=== PATIENT | male | born 1940 | race American Indian/Alaskan Native ===

== ENCOUNTER 2018-10-25 10:50 | Inpatient (IN) | payer MEDICARE ==
--- NOTE | 2018-10-25 11:26 | Emergency Department Report ---
ED Extremity Problem HPI - General Chief complaint: Extremity Injury, Lower Stated complaint: SWOLLEN FEET Time Seen by Provider: 10/25/18 11:10 Source: patient, family Mode of arrival: Ambulatory Limitations: Physical Limitation - History of Present Illness Initial comments: 78-year-old male, poor historian, presents to ED with bilateral lower extremity swelling 3 weeks. Patient has history of prostate cancer, thought to be in remission at this time following his last treatment. Patient was seen in this ER 6 days ago for same. Was given a prescription for Lasix, which he has been taking, however the swelling seems to be getting worse. Patient states he has a history of "heart problems", however the patient's says she is not aware of any heart problems. Denies pt ever having swelling in his legs to this extent. Patient denies shortness of breath. Reports pain and weeping to bilateral lower legs and feet. Patient is from out of town, and is here with his visiting his daughter who is currently sick with cancer. MD Complaint: extremity pain, extremity swelling -: week(s) (3) Location: bilateral lower extremity History of Same: No Consistency: constant Improves with: nothing Worsens with: nothing Associated Symptoms: denies: chest pain, shortness of breath - Related Data Previous Rx's Medication Instructions Recorded Last Taken Type Amlodipine Besylate [Norvasc] 5 mg PO DAILY #7 tablet 10/19/18 Unknown Rx Furosemide [Lasix] 20 mg PO QDAY #20 tablet 10/19/18 Unknown Rx Furosemide [Lasix] 20 mg PO QDAY #7 tablet 10/19/18 Unknown Rx Allergies Allergy/AdvReac Type Severity Reaction Status Date / Time No Known Allergies Allergy Verified 10/19/18 09:36 ED Review of Systems ROS: Stated complaint: SWOLLEN FEET Other details as noted in HPI Comment: All other systems reviewed and negative Constitutional: denies: chills, fever Respiratory: denies: shortness of breath Cardiovascular: denies: chest pain Musculoskeletal: as per HPI ED Past Medical Hx - Past Medical History Previous Medical History?: Yes Hx Hypertension: Yes Hx Diabetes: Yes Hx Renal Disease: Yes (unknown stage) - Surgical History Past Surgical History?: No - Social History Smoking Status: Never Smoker Substance Use Type: Alcohol - Medications Home Medications: Home Medications Medication Instructions Recorded Confirmed Last Taken Type Amlodipine Besylate [Norvasc] 5 mg PO DAILY #7 tablet 10/19/18 Unknown Rx Furosemide [Lasix] 20 mg PO QDAY #20 tablet 10/19/18 Unknown Rx Furosemide [Lasix] 20 mg PO QDAY #7 tablet 10/19/18 Unknown Rx ED Physical Exam - General Limitations: Physical Limitation General appearance: alert, in no apparent distress - Head Head exam: Present: atraumatic, normocephalic - Eye Eye exam: Present: normal appearance - ENT ENT exam: Present: mucous membranes moist - Neck Neck exam: Present: normal inspection - Respiratory Respiratory exam: Present: normal lung sounds bilaterally. Absent: respiratory distress - Cardiovascular Cardiovascular Exam: Present: regular rate, normal rhythm - GI/Abdominal GI/Abdominal exam: Present: soft. Absent: distended - Extremities Exam Extremities exam: Present: other (2+ pitting edema to bilateral feet and lower legs with excoriation of skin if dorsal feet, weeping fluid present bilaterally) - Neurological Exam Neurological exam: Present: alert, oriented X3 - Psychiatric Psychiatric exam: Present: normal affect, normal mood - Skin Skin exam: Present: warm ED Course Vital Signs 10/25/18 10:57 Temperature 97.7 F Pulse Rate 92 H Respiratory 16 Rate Blood Pressure 139/67 O2 Sat by Pulse 100 Oximetry ED Medical Decision Making - Lab Data Result diagrams: 10/25/18 12:37 10/25/18 13:49 - Radiology Data Radiology results: report reviewed, image reviewed - Medical Decision Making 78 yo M, hx prostate CA, with BLE edema x 3 wks. US negative for DVT. Edema worsening since ED visit 5 days ago despite taking lasix. CXR negative. Initial potassium elevated at 5.7. Re-draw is 5.2. Likely hemolysis as renal function is normal. IV lasix given. Will admit to hospitalist, Dr Alexis. - Differential Diagnosis CHF, DVT, dependent edema Critical care attestation.: If time is entered above; I have spent that time in minutes in the direct care of this critically ill patient, excluding procedure time. ED Disposition Clinical Impression: Bilateral lower extremity edema Disposition: OP ADMIT IP TO THIS HOSP Is pt being admited?: Yes Condition: Stable Referrals: PRIMARY CARE, [Referring] - 3-5 Days Time of Disposition: 13:43
--- NOTE | 2018-10-25 12:34 | XRay Report ---
PROCEDURE: XR CHEST 1V AP TECHNIQUE: Chest radiograph single view. HISTORY: sob COMPARISONS: None . FINDINGS: Thoracic aorta changes may reflect atherosclerosis. There is degenerative spondylosis of the thoracic spine. There is no pulmonary consolidation. No evidence of pleural effusion. No pneumothorax radiographically visible. Cardiac silhouette size is normal without vascular congestion. Large lung volumes suggest hyperinflation. This may reflect pulmonary emphysema. IMPRESSION: Nonspecific large lung volumes may be secondary to pulmonary emphysema and/or asthma This document is electronically signed by Freddie Bettencourt MD., Oct 25 2018 12:32:00 PM ET
[2018-10-25 13:07] LABS: Basophils % (Auto) 0.7 % (0.0-1.8); Eosinophils # (Auto) 0.1 K/mm3 (0.0-0.4); Eosinophils % (Auto) 2.9 % (0.0-4.3); Hematocrit 30.6 % (35.5-45.6); Hemoglobin 9.9 gm/dl (11.8-15.2); Lymphocytes # (Auto) 0.8 K/mm3 (1.2-5.4); Lymphocytes % (Auto) 18.7 % (13.4-35.0); Mean Corpuscular HGB Conc 32 % (32-34); Mean Corpuscular Volume 106 fl (84-94); Monocytes # (Auto) 0.3 K/mm3 (0.0-0.8); Monocytes % (Auto) 6.2 % (0.0-7.3); Platelet Count 116 K/mm3 (140-440); Red Blood Count 2.89 M/mm3 (3.65-5.03); Red Cell Distribution Width 13.6 % (13.2-15.2)
[2018-10-25 13:27] LABS: Calcium 8.4 mg/dL (8.4-10.2)
--- NOTE | 2018-10-25 13:27 | Vascular Lab Report ---
PROCEDURE: VL VENOUS DUPLEX LE BILAT HISTORY: swelling FINDINGS: Real-time ultrasound of the right leg and left leg was performed using grayscale and color Doppler images. These images demonstrate no evidence of deep venous thrombus in the lateral left common femoral vein, superficial femoral vein or popliteal vein. The calf veins could not be images due to subcutaneous edema. There is a left popliteal cyst 2.5 x 1.1 cm. There is a right groin lymph node 1.6 x 0.8 cm and a left groin lymph node 1.8 x 0.6 cm. IMPRESSION: No DVT in either leg Left popliteal cyst This document is electronically signed by Edison Sol MD., Oct 25 2018 01:25:02 PM ET
[2018-10-25] MEDS ORDERED: LASIX IV ONE (14:17)
[2018-10-25] MEDS ORDERED: LASIX ONE (14:51)
--- NOTE | 2018-10-25 20:56 | History and Physical Report ---
History of Present Illness Date of examination: 10/25/18 Date of admission: 10/25/18 14:17 Chief complaint: Bilateral lower extremity swelling and redness for 3 weeks. SOB on exertion for 3 weeks History of present illness: 78-year-old male with history of HTN,Prostate cancer in remission comes in for Increasing swelling of both legs especially feet for 3 weeks.Also redness of both feet.Patient came to this ER 6 days ago and was treated for lower extremity swelling with Lasix and to follow up with pcp.Patient comes back for increasing swelling of the legs and worsening redness of both feet.No sob on exertion.No orthopnea. No fever or chills. No recent travel. Past Medical History Previous Medical History?: Yes Hypertension: Yes Diabetes: Yes Renal Disease: Yes (unknown stage) Surgical History Past Surgical History?: No Social History Smoking Status: Never Smoker Substance Use Type: Alcohol Family History Htn Medications Home Medications: Home Medications Medication Instructions Recorded Confirmed Last Taken Type Amlodipine Besylate [Norvasc] 5 mg PO DAILY #7 tablet 10/19/18 Unknown Rx Furosemide [Lasix] 20 mg PO QDAY #20 tablet 10/19/18 Unknown Rx Furosemide [Lasix] 20 mg PO QDAY #7 tablet 10/19/18 Unknown Rx Review of Systems ROS: Stated complaint: SWOLLEN FEET Other details as noted in HPI Comment: All other systems reviewed and negative Constitutional: denies: chills, fever Respiratory: denies: shortness of breath Cardiovascular: denies: chest pain Musculoskeletal: as per HPI Extremities: Increasing swelling of both legs. Medications and Allergies Allergies Allergy/AdvReac Type Severity Reaction Status Date / Time No Known Allergies Allergy Verified 10/19/18 09:36 Home Medications Medication Instructions Recorded Confirmed Last Taken Type Amlodipine Besylate [Norvasc] 5 mg PO DAILY #7 tablet 10/19/18 10/25/18 Unknown Rx Furosemide [Lasix] 20 mg PO QDAY #20 tablet 10/19/18 10/25/18 Unknown Rx Furosemide [Lasix] 20 mg PO QDAY #7 tablet 10/19/18 10/25/18 Unknown Rx Exam - Constitutional Vitals: Temp Pulse Resp BP Pulse Ox 98.7 F 76 20 138/70 96 10/25/18 15:37 10/25/18 15:37 10/25/18 15:37 10/25/18 15:37 10/25/18 15:49 General appearance: Present: no acute distress, well-nourished - EENT Eyes: Present: PERRL ENT: hearing intact, clear oral mucosa - Neck Neck: Present: supple, normal ROM - Respiratory Respiratory effort: normal Respiratory: bilateral: CTA - Cardiovascular Heart rate: 78 Rhythm: regular Heart Sounds: Present: S1 & S2. Absent: rub, click - Extremities Extremities: pulses symmetrical Extremity abnormal: edema (4 plus swelling of both feet Eryhema of both feet.small superficial ulcer on rt foot ), erythema Peripheral Pulses: within normal limits - Abdominal General gastrointestinal: Present: soft, non-tender, non-distended, normal bowel sounds Male genitourinary: Present: normal - Rectal Rectal Exam: deferred - Integumentary Integumentary: Present: clear, warm, dry - Musculoskeletal Musculoskeletal: gait normal, strength equal bilaterally - Psychiatric Psychiatric: appropriate mood/affect, intact judgment & insight - Neurologic Neurologic: CNII-XII intact, moves all extremities - Allied Health Allied health notes reviewed: nursing, case management Results - Labs CBC & Chem 7: 10/25/18 12:37 10/25/18 13:49 Labs: Laboratory Last Values WBC 4.2 K/mm3 (4.5-11.0) L 10/25/18 12:37 RBC 2.89 M/mm3 (3.65-5.03) L 10/25/18 12:37 Hgb 9.9 gm/dl (11.8-15.2) L 10/25/18 12:37 Hct 30.6 % (35.5-45.6) L 10/25/18 12:37 MCV 106 fl (84-94) H 10/25/18 12:37 MCH 34 pg (28-32) H 10/25/18 12:37 MCHC 32 % (32-34) 10/25/18 12:37 RDW 13.6 % (13.2-15.2) 10/25/18 12:37 Plt Count 116 K/mm3 (140-440) L 10/25/18 12:37 Lymph % (Auto) 18.7 % (13.4-35.0) 10/25/18 12:37 [place] % (Auto) 6.2 % (0.0-7.3) 10/25/18 12:37 Eos % (Auto) 2.9 % (0.0-4.3) 10/25/18 12:37 Baso % (Auto) 0.7 % (0.0-1.8) 10/25/18 12:37 Lymph # 0.8 K/mm3 (1.2-5.4) L 10/25/18 12:37 [place] # 0.3 K/mm3 (0.0-0.8) 10/25/18 12:37 Eos # 0.1 K/mm3 (0.0-0.4) 10/25/18 12:37 Baso # 0.0 K/mm3 (0.0-0.1) 10/25/18 12:37 Seg Neutrophils % 71.5 % (40.0-70.0) H 10/25/18 12:37 Seg Neutrophils # 3.0 K/mm3 (1.8-7.7) 10/25/18 12:37 Sodium 141 mmol/L (137-145) 10/25/18 12:37 Potassium 5.2 mmol/L (3.6-5.0) H 10/25/18 13:49 Chloride 109.4 mmol/L (98-107) H 10/25/18 12:37 Carbon Dioxide 22 mmol/L (22-30) 10/25/18 12:37 15 mmol/L 10/25/18 12:37 BUN 12 mg/dL (9-20) 10/25/18 12:37 1.4 mg/dL (0.8-1.5) 10/25/18 12:37 Estimated GFR 60 ml/min 10/25/18 12:37 9 % 10/25/18 12:37 Glucose 107 mg/dL (75-100) H 10/25/18 12:37 Calcium 8.4 mg/dL (8.4-10.2) 10/25/18 12:37 NT-Pro-B Natriuret Pep 1061 pg/mL (0-900) H 10/25/18 12:37 Short CBC 10/25/18 Range/Units 12:37 WBC 4.2 L (4.5-11.0) K/mm3 Hgb 9.9 L (11.8-15.2) gm/dl Hct 30.6 L (35.5-45.6) % Plt Count 116 L (140-440) K/mm3 BMP 10/25/18 10/25/18 12:37 13:49 Sodium 141 Potassium 5.7 H 5.2 H Chloride 109.4 H Carbon Dioxide 22 BUN 12 Creatinine 1.4 Glucose 107 H Calcium 8.4 - Imaging and Cardiology EKG: report reviewed Imaging and Cardiology: Venous duplex scan of Lower extremities FINDINGS: Real-time ultrasound of the right leg and left leg was performed using grayscale and color Doppler images. These images demonstrate no evidence of deep venous thrombus in the lateral left common femoral vein, superficial femoral vein or popliteal vein. The calf veins could not be images due to subcutaneous edema. There is a left popliteal cyst 2.5 x 1.1 cm. There is a right groin lymph node 1.6 x 0.8 cm and a left groin lymph node 1.8 x 0.6 cm. IMPRESSION: No DVT in either leg Left popliteal cyst CXR IMPRESSION: Nonspecific large lung volumes may be secondary to pulmonary emphysema and/or asthma Assessment and Plan Advance Directives: Yes (Full code) VTE prophylaxis?: Chemical Plan of care discussed with patient/family: Yes - Patient Problems (1) Bilateral lower extremity edema Current Visit: Yes Status: Acute Plan to address problem: Bilateral swelling probably sec to pulmonary HTN /Emphysema .Patient is a smoker. Duplex scan is negative for any DVT There is some erythema of both feet. IV Lasix for now IV abx for cellulitis (2) Cellulitis of both feet Current Visit: Yes Status: Acute Plan to address problem: Patientr initiated on IV Unasyn and IV Vancomycin (3) Prostate cancer Current Visit: Yes Status: Chronic Plan to address problem: In remission (4) HTN (hypertension) Current Visit: Yes Status: Chronic Qualifiers: Hypertension type: essential hypertension Qualified Code(s): I10 - Essential (primary) hypertension Plan to address problem: Amlodipine stopped because of pedal edema Started on Losartan 50 mg po qd (5) Nicotine dependence Current Visit: Yes Status: Chronic Qualifiers: Nicotine product type: cigarettes Plan to address problem: Counselled Nicoderm patch initiated (6) T2DM (type 2 diabetes mellitus) Current Visit: Yes Status: Chronic Qualifiers: Diabetes mellitus technician terminal and repeater insulin use: without long-term use Plan to address problem: A1c 7.5 Coverage for now (7) Hyperkalemia Current Visit: Yes Status: Acute Plan to address problem: Mild On Lasix will resume PO Potassium (8) DVT prophylaxis Current Visit: Yes Status: Acute Plan to address problem: On Lovenox and GI prophylaxis
[2018-10-25] MEDS ORDERED: SODIUM CHLORIDE FLUSH SYRINGE 10 ML IV PRN (21:02)
[2018-10-25] MEDS ORDERED: TYLENOL PO PRN (21:02)
[2018-10-25] MEDS ORDERED: PERCOCET 5/325 PO PRN (21:02)
[2018-10-25] MEDS ORDERED: MORPHINE IV PRN (21:02)
[2018-10-25] MEDS ORDERED: ZOFRAN IV PRN (21:02)
[2018-10-25] MEDS ORDERED: VANCOMYCIN 1,250 MG in NACL 0.9% 250ML 250 ML IV ONE (22:00)
[2018-10-25] MEDS ORDERED: K-DUR PO SCH (22:00)
[2018-10-25] MEDS ORDERED: VANCOMYCIN PHARMACY TO DOSE IV SCH ×2 (22:00)
[2018-10-25] MEDS: SODIUM CHLORIDE FLUSH SYRINGE 10 ML IV SCH (22:47)
[2018-10-25] MEDS: PEPCID PO SCH (22:47)
[2018-10-26] MEDS: UNASYN/NS 3 GM/100 ML 3 GM/100 ML BAG IV SCH ×4 (00:34→17:54)
[2018-10-26] MEDS: LASIX IV SCH ×2 (05:44→17:54)
[2018-10-26 06:24] LABS: Basophils % (Auto) 0.6 % (0.0-1.8); Eosinophils # (Auto) 0.2 K/mm3 (0.0-0.4); Eosinophils % (Auto) 5.1 % (0.0-4.3); Hematocrit 26.3 % (35.5-45.6); Hemoglobin 8.9 gm/dl (11.8-15.2); Lymphocytes % (Auto) 25.6 % (13.4-35.0); Mean Corpuscular HGB Conc 34 % (32-34); Mean Corpuscular Volume 102 fl (84-94); Monocytes # (Auto) 0.3 K/mm3 (0.0-0.8); Monocytes % (Auto) 7.7 % (0.0-7.3); Platelet Count 119 K/mm3 (140-440); Red Blood Count 2.59 M/mm3 (3.65-5.03); Red Cell Distribution Width 13.3 % (13.2-15.2)
[2018-10-26 06:53] LABS: Albumin 2.7 g/dL (3.9-5); Calcium 8.1 mg/dL (8.4-10.2)
[2018-10-26] MEDS: HumaLOG SUB-Q SCH ×4 (07:30→22:07)
[2018-10-26] MEDS: KIONEX PO SCH ×2 (09:39→11:50)
[2018-10-26] MEDS: SODIUM CHLORIDE FLUSH SYRINGE 10 ML IV SCH ×2 (09:39→22:08)
[2018-10-26] MEDS: PEPCID PO SCH (09:39)
[2018-10-26] MEDS ORDERED: COZAAR PO SCH (10:00)
--- NOTE | 2018-10-26 11:21 | Progress Note ---
Assessment and Plan Assessment and plan: Cellulitis, ulcers both legs and feet Admitted to [facility] Continue Unasyn and vanco Consult wouncd care nurse Minimal blood in stool from known hemorrhoids. Follow H/H Hyperkalemia. give kayexalate and repeat. Discontinue k-dur Hypertension Monitor BP History of prostate cancer full code status History Interval history: Pain swelling redness both legs and feet, Blood in stool from hemorrhoids Hospitalist Physical - Physical exam Narrative exam: Gen: Not in acute distress, lying in bed, HEENT: Normocephalic, atraumatic Neck: supple, no JVD Heart: S1 and S2 reg, no murmurs, rubs or gallop Lungs: Clear, no crackles, no wheeze Abd: soft, non tender, non distended, normal BS Ext: Bilateral leg and feet ulcers, swelling, erythema,no clubbing, no cyanosis, Neuro: Awake,alert, oriented x 3, moves all ext, non focal Psych:Normal mood - Constitutional Vitals: Temp Pulse Resp BP Pulse Ox 98.2 F 90 16 133/68 97 10/26/18 07:19 10/26/18 10:00 10/26/18 07:19 10/26/18 07:19 10/26/18 07:19 General appearance: Present: no acute distress, well-nourished Results - Labs CBC & Chem 7: 10/26/18 05:42 10/26/18 05:42 Labs: Laboratory Last Values WBC 4.0 K/mm3 (4.5-11.0) L 10/26/18 05:42 RBC 2.59 M/mm3 (3.65-5.03) L 10/26/18 05:42 Hgb 8.9 gm/dl (11.8-15.2) L 10/26/18 05:42 Hct 26.3 % (35.5-45.6) L 10/26/18 05:42 MCV 102 fl (84-94) H 10/26/18 05:42 MCH 34 pg (28-32) H 10/26/18 05:42 MCHC 34 % (32-34) 10/26/18 05:42 RDW 13.3 % (13.2-15.2) 10/26/18 05:42 Plt Count 119 K/mm3 (140-440) L 10/26/18 05:42 Lymph % (Auto) 25.6 % (13.4-35.0) 10/26/18 05:42 [place] % (Auto) 7.7 % (0.0-7.3) H 10/26/18 05:42 Eos % (Auto) 5.1 % (0.0-4.3) H 10/26/18 05:42 Baso % (Auto) 0.6 % (0.0-1.8) 10/26/18 05:42 Lymph # 1.0 K/mm3 (1.2-5.4) L 10/26/18 05:42 [place] # 0.3 K/mm3 (0.0-0.8) 10/26/18 05:42 Eos # 0.2 K/mm3 (0.0-0.4) 10/26/18 05:42 Baso # 0.0 K/mm3 (0.0-0.1) 10/26/18 05:42 Seg Neutrophils % 61.0 % (40.0-70.0) 10/26/18 05:42 Seg Neutrophils # 2.5 K/mm3 (1.8-7.7) 10/26/18 05:42 Sodium 143 mmol/L (137-145) 10/26/18 05:42 Potassium 5.4 mmol/L (3.6-5.0) H 10/26/18 05:42 Chloride 111.5 mmol/L (98-107) H 10/26/18 05:42 Carbon Dioxide 22 mmol/L (22-30) 10/26/18 05:42 15 mmol/L 10/26/18 05:42 BUN 12 mg/dL (9-20) 10/26/18 05:42 1.4 mg/dL (0.8-1.5) 10/26/18 05:42 Estimated GFR 60 ml/min 10/26/18 05:42 9 % 10/26/18 05:42 Glucose 110 mg/dL (75-100) H 10/26/18 05:42 POC Glucose 101 (70-105) 10/26/18 07:23 7.5 % (4-6) H 10/25/18 21:23 Calcium 8.1 mg/dL (8.4-10.2) L 10/26/18 05:42 0.30 mg/dL (0.1-1.2) 10/26/18 05:42 AST 41 units/L (5-40) H 10/26/18 05:42 ALT 29 units/L (7-56) 10/26/18 05:42 65 units/L (35-129) 10/26/18 05:42 NT-Pro-B Natriuret Pep 1061 pg/mL (0-900) H 10/25/18 12:37 4.7 g/dL (6.3-8.2) L 10/26/18 05:42 2.7 g/dL (3.9-5) L 10/26/18 05:42 1.4 % 10/26/18 05:42 Active Medications - Current Medications Current Medications: Generic Name Dose Route Start Last Admin Trade Name Freq PRN Reason Stop Dose Admin Acetaminophen 650 mg 10/25/18 21:02 Tylenol PO Q4H PRN Pain MILD(1-3)/Fever >100.5/MCDONALD Enoxaparin Sodium 40 mg 10/26/18 22:00 Lovenox SUB-Q QDAY@2200 [facility] Famotidine 20 mg 10/25/18 22:00 10/26/18 09:39 Pepcid PO 20 mg DAILY EMILY Administration Furosemide 40 mg 10/26/18 06:00 10/26/18 05:44 Lasix IV 40 mg 0600,1800 EMILY Administration Ampicillin Sodium/Sulbactam Sodium 3 gm in 100 mls @ 100 mls/hr 10/26/18 00:00 10/26/18 05:44 Unasyn/Ns 3 Gm/100 Ml IV 100 mls/hr Q6HR EMILY Administration Protocol Vancomycin HCl 1 gm in 250 mls @ 166.667 mls/hr 10/26/18 22:00 Vancomycin/Ns 1 Gm/250 Ml IV Q24H [facility] Insulin Human Lispro 0 unit 10/26/18 07:30 10/26/18 07:30 Humalog SUB-Q Not Given ACHS [facility] Protocol Morphine Sulfate 2 mg 10/25/18 21:02 Morphine IV Q4H PRN Pain, Moderate (4-6) Ondansetron HCl 4 mg 10/25/18 21:02 Zofran IV Q8H PRN Nausea And Vomiting Oxycodone/Acetaminophen 1 tab 05/25/19 21:02 Percocet 5/325 PO Q6H PRN Pain, Moderate (4-6) Sodium Chloride 10 ml 10/25/18 22:00 10/26/18 09:39 Sodium Chloride Flush Syringe 10 Ml IV 10 ml BID EMILY Administration Sodium Chloride 10 ml 10/25/18 21:02 Sodium Chloride Flush Syringe 10 Ml IV PRN PRN LINE FLUSH Sodium Polystyrene Sulfonate 30 gm 10/26/18 09:00 10/26/18 09:39 Kionex PO 10/26/18 12:01 30 gm Q6HR EMILY Administration Nutrition/Malnutrition Assess - Dietary Evaluation Nutrition/Malnutrition Findings: Nutrition Notes Start: 10/26/18 10:05 Freq: Status: Active Protocol: Document 10/26/18 10:05 LP (Rec: 10/26/18 10:10 LP [id number]) Nutrition Notes Need for 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 Pt states missing top teeth and some bottom but ok with regular consistency. Pt states appetite varies. Observed temporal wasting. Pt states wt last month was 111lbs. Wt gain could be due to edema. #1 Nutrition Diagnosis Malnutrition Etiology chronic illness As Evidenced by Signs and Symptoms leg edema, varied appetite, temporal wasting Is patient on ventilator? No Is Patient Ambulatory and/or Out of Bed Yes REE-([facility]-ambulatory/OOB) [ [id number] [id number]] Calculation Used for Recommendations [facility] Additional Notes Protein needs are 71-88g (1.2- 1.5g/kg) Fluid needs are 1ml/kcal Nutrition Intervention Change Diet Order: Cardiac/consistent CHO Goal #1 Meet at least 80% of kcal and protein needs Anticipated Discharge Needs: Cardiac/consistent CHO Follow-Up By: 10/28/18 Additional Comments Follow for intakes
[2018-10-26 18:06] LABS: Calcium 8.2 mg/dL (8.4-10.2)
[2018-10-26] MEDS: LOVENOX SUB-Q SCH (22:07)
[2018-10-26] MEDS: VANCOMYCIN/NS 1 GM/250 ML 1 GM/250 ML BAG IV SCH (22:08)
[2018-10-27] MEDS: UNASYN/NS 3 GM/100 ML 3 GM/100 ML BAG IV SCH ×5 (00:28→23:07)
[2018-10-27] MEDS: LASIX IV SCH ×2 (05:05→17:24)
[2018-10-27 05:44] LABS: Hematocrit 31.1 % (35.5-45.6); Hemoglobin 10.3 gm/dl (11.8-15.2); Mean Corpuscular HGB Conc 33 % (32-34); Mean Corpuscular Volume 104 fl (84-94); Platelet Count 136 K/mm3 (140-440); Red Blood Count 2.99 M/mm3 (3.65-5.03); Red Cell Distribution Width 13.6 % (13.2-15.2)
[2018-10-27 06:00] LABS: Calcium 8.8 mg/dL (8.4-10.2)
[2018-10-27] MEDS: HumaLOG SUB-Q SCH ×4 (09:00→22:49)
[2018-10-27] MEDS: SODIUM CHLORIDE FLUSH SYRINGE 10 ML IV SCH ×2 (09:42→21:25)
[2018-10-27] MEDS: PEPCID PO SCH (09:42)
--- NOTE | 2018-10-27 16:00 | Progress Note ---
Assessment and Plan Assessment and plan: Cellulitis, ulcers both legs and feet Admitted to [facility] Continue Unasyn and vicenta Consulted wound care nurse Minimal blood in stool from known hemorrhoids, chronic Follow H/H Hyperkalemia. Now resolved after Kayexalate Discontinued k-dur he was using from home. Hypertension Monitor BP History of prostate cancer full code status History Interval history: Pain , swelling redness both legs and feet, Slight Blood in stool from hemorrhoids, intermittent Hospitalist Physical - Physical exam Narrative exam: Gen: Not in acute distress, lying in bed, HEENT: Normocephalic, atraumatic Neck: supple, no JVD Heart: S1 and S2 reg, no murmurs, rubs or gallop Lungs: Clear, no crackles, no wheeze Abd: soft, non tender, non distended, normal BS Ext: Bilateral leg and feet ulcers, swelling, erythema,no clubbing, no cyanosis, Neuro: Awake,alert, oriented x 3, moves all ext, non focal Psych:Normal mood - Constitutional Vitals: Temp Pulse Resp BP Pulse Ox 97.6 F 90 18 139/72 100 10/27/18 13:23 10/27/18 13:23 10/27/18 13:23 10/27/18 13:23 10/27/18 13:23 General appearance: Present: no acute distress, well-nourished Results - Labs CBC & Chem 7: 10/27/18 04:57 10/27/18 04:57 Labs: Laboratory Last Values WBC 4.2 K/mm3 (4.5-11.0) L 10/27/18 04:57 RBC 2.99 M/mm3 (3.65-5.03) L 10/27/18 04:57 Hgb 10.3 gm/dl (11.8-15.2) L 10/27/18 04:57 Hct 31.1 % (35.5-45.6) L 10/27/18 04:57 MCV 104 fl (84-94) H 10/27/18 04:57 MCH 35 pg (28-32) H 10/27/18 04:57 MCHC 33 % (32-34) 10/27/18 04:57 RDW 13.6 % (13.2-15.2) 10/27/18 04:57 Plt Count 136 K/mm3 (140-440) L 10/27/18 04:57 Lymph % (Auto) 25.6 % (13.4-35.0) 10/26/18 05:42 [place] % (Auto) 7.7 % (0.0-7.3) H 10/26/18 05:42 Eos % (Auto) 5.1 % (0.0-4.3) H 10/26/18 05:42 Baso % (Auto) 0.6 % (0.0-1.8) 10/26/18 05:42 Lymph # 1.0 K/mm3 (1.2-5.4) L 10/26/18 05:42 [place] # 0.3 K/mm3 (0.0-0.8) 10/26/18 05:42 Eos # 0.2 K/mm3 (0.0-0.4) 10/26/18 05:42 Baso # 0.0 K/mm3 (0.0-0.1) 10/26/18 05:42 Seg Neutrophils % 61.0 % (40.0-70.0) 10/26/18 05:42 Seg Neutrophils # 2.5 K/mm3 (1.8-7.7) 10/26/18 05:42 Sodium 148 mmol/L (137-145) H 10/27/18 04:57 Potassium 4.6 mmol/L (3.6-5.0) 10/27/18 04:57 Chloride 112.0 mmol/L (98-107) H 10/27/18 04:57 Carbon Dioxide 22 mmol/L (22-30) 10/27/18 04:57 19 mmol/L 10/27/18 04:57 BUN 12 mg/dL (9-20) 10/27/18 04:57 1.5 mg/dL (0.8-1.5) 10/27/18 04:57 Estimated GFR 55 ml/min 10/27/18 04:57 8 % 10/27/18 04:57 Glucose 70 mg/dL (75-100) L 10/27/18 04:57 POC Glucose 226 (70-105) H 10/27/18 11:52 7.5 % (4-6) H 10/25/18 21:23 Calcium 8.8 mg/dL (8.4-10.2) 10/27/18 04:57 0.30 mg/dL (0.1-1.2) 10/26/18 05:42 AST 41 units/L (5-40) H 10/26/18 05:42 ALT 29 units/L (7-56) 10/26/18 05:42 65 units/L (35-129) 10/26/18 05:42 NT-Pro-B Natriuret Pep 1061 pg/mL (0-900) H 10/25/18 12:37 4.7 g/dL (6.3-8.2) L 10/26/18 05:42 2.7 g/dL (3.9-5) L 10/26/18 05:42 1.4 % 10/26/18 05:42 Active Medications - Current Medications Current Medications: Generic Name Dose Route Start Last Admin Trade Name Freq PRN Reason Stop Dose Admin Acetaminophen 650 mg 10/25/18 21:02 Tylenol PO Q4H PRN Pain MILD(1-3)/Fever >100.5/MCDONALD Enoxaparin Sodium 40 mg 10/26/18 22:00 10/26/18 22:07 Lovenox SUB-Q 40 mg QDAY@2200 EMILY Administration Famotidine 20 mg 10/25/18 22:00 10/27/18 09:42 Pepcid PO 20 mg DAILY EMILY Administration Furosemide 40 mg 10/26/18 06:00 10/27/18 05:05 Lasix IV 40 mg 0600,1800 EMILY Administration Ampicillin Sodium/Sulbactam Sodium 3 gm in 100 mls @ 100 mls/hr 10/26/18 00:00 10/27/18 11:26 Unasyn/Ns 3 Gm/100 Ml IV 100 mls/hr Q6HR EMILY Administration Protocol Vancomycin HCl 1 gm in 250 mls @ 166.667 mls/hr 10/26/18 22:00 10/26/18 22:08 Vancomycin/Ns 1 Gm/250 Ml IV 166.667 mls/hr Q24H EMILY Administration Insulin Human Lispro 0 unit 10/26/18 07:30 10/27/18 12:44 Humalog SUB-Q 3 unit ACHS EMILY Administration Protocol Morphine Sulfate 2 mg 10/25/18 21:02 Morphine IV Q4H PRN Pain, Moderate (4-6) Ondansetron HCl 4 mg 10/25/18 21:02 Zofran IV Q8H PRN Nausea And Vomiting Oxycodone/Acetaminophen 1 tab 10/25/18 21:02 Percocet 5/325 PO Q6H PRN Pain, Moderate (4-6) Sodium Chloride 10 ml 10/25/18 22:00 10/27/18 09:42 Sodium Chloride Flush Syringe 10 Ml IV 10 ml BID EMILY Administration Sodium Chloride 10 ml 10/25/18 21:02 Sodium Chloride Flush Syringe 10 Ml IV PRN PRN LINE FLUSH Nutrition/Malnutrition Assess - Dietary Evaluation Nutrition/Malnutrition Findings: Nutrition Notes Start: 10/26/18 10:05 Freq: Status: Active Protocol: Document 10/26/18 10:05 LP (Rec: 10/26/18 10:10 LP [id number]) Nutrition Notes Need for 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 Pt states missing top teeth and some bottom but ok with regular consistency. Pt states appetite varies. Observed temporal wasting. Pt states wt last month was 111lbs. Wt gain could be due to edema. #1 Nutrition Diagnosis Malnutrition Etiology chronic illness As Evidenced by Signs and Symptoms leg edema, varied appetite, temporal wasting Is patient on ventilator? No Is Patient Ambulatory and/or Out of Bed Yes REE-([facility]-ambulatory/OOB) [ 1682.421 NUTR.MSJOOB] Calculation Used for Recommendations [facility] Additional Notes Protein needs are 71-88g (1.2- 1.5g/kg) Fluid needs are 1ml/kcal Nutrition Intervention Change Diet Order: Cardiac/consistent CHO Goal #1 Meet at least 80% of kcal and protein needs Anticipated Discharge Needs: Cardiac/consistent CHO Follow-Up By: 10/28/18 Additional Comments Follow for intakes
[2018-10-27] MEDS: VANCOMYCIN/NS 1 GM/250 ML 1 GM/250 ML BAG IV SCH (21:24)
[2018-10-27] MEDS: LOVENOX SUB-Q SCH (21:25)
[2018-10-28] MEDS: UNASYN/NS 3 GM/100 ML 3 GM/100 ML BAG IV SCH ×2 (05:16→17:35)
[2018-10-28] MEDS: LASIX IV SCH (05:16)
[2018-10-28 05:31] LABS: Hemoglobin 7.4 gm/dl (11.8-15.2); Mean Corpuscular HGB Conc 34 % (32-34); Mean Corpuscular Volume 100 fl (84-94); Platelet Count 107 K/mm3 (140-440); Red Blood Count 2.15 M/mm3 (3.65-5.03); Red Cell Distribution Width 13.2 % (13.2-15.2)
[2018-10-28 05:57] LABS: Calcium 7.4 mg/dL (8.4-10.2)
[2018-10-28] MEDS: HumaLOG SUB-Q SCH ×4 (08:00→22:07)
[2018-10-28] MEDS ORDERED: NACL 0.9% 500 ML 500 ML IV ONE (08:13)
--- NOTE | 2018-10-28 08:14 | Progress Note ---
Assessment and Plan Assessment and plan: 78-year-old male with history of HTN,Prostate cancer in remission comes in for Increasing swelling of both legs especially feet for 3 weeks.Also redness of both feet.Patient came to this ER 6 days ago and was treated for lower extremity swelling with Lasix and to follow up with pcp.Patient comes back for increasing swelling of the legs and worsening redness of both feet.No sob on exertion.No orthopnea. No fever or chills. No recent travel. CXR: ?Pulmonary emphysema or asthma with large lung volumes Cellulitis, ulcers both legs and feet Admitted to [facility] Continue Unasyn and vanco Consulted wound care nurse Hypernatremia - Will monitor KRZYSZTOF secondary to vasomotor nephropathy - Change lasix back to PO at 40mg daily -Given some gentle hydration -Will discuss with pharmacy about holding vancomycin B/l LOWER EXT SWELLING -?Secondary to above mentioned cellulitis -Check Echo -Doppler lower ext is negative. Precipitatous drop in HGB/Pancytopenia -Minimal blood in stool from known hemorrhoids, chronic -Follow H/H repeat at 12noon Hyperkalemia. Now resolved after Kayexalate Discontinued k-dur he was using from home. Hypocalcemia -Monitor Hypertension Monitor BP Debility: PT/OT/ History of prostate cancer full code status History Interval history: Patient seen and examine this am, no further bleeding noted. patient reports he ambulates with cane sometimes. No other adverse event reported to me. Hospitalist Physical - Physical exam Narrative exam: Gen: Not in acute distress, lying in bed, HEENT: Normocephalic, atraumatic Neck: supple, no JVD Heart: S1 and S2 reg, no murmurs, rubs or gallop Lungs: Clear, no crackles, no wheeze Abd: soft, non tender, non distended, normal BS Ext: Bilateral leg and feet ulcers, swelling, erythema,no clubbing, no cyanosis, Neuro: Awake,alert, oriented x 3, moves all ext, non focal Psych:Normal mood - Constitutional Vitals: Temp Pulse Resp BP Pulse Ox 98.5 F 93 H 18 131/72 100 10/28/18 07:23 10/28/18 07:23 10/28/18 07:23 10/28/18 07:23 10/28/18 07:23 General appearance: Present: no acute distress, well-nourished Results - Labs CBC & Chem 7: 10/28/18 13:45 10/28/18 05:23 Labs: Laboratory Last Values WBC 4.0 K/mm3 (4.5-11.0) L 10/28/18 05:23 RBC 2.15 M/mm3 (3.65-5.03) L 10/28/18 05:23 Hgb 7.4 gm/dl (11.8-15.2) L 10/28/18 05:23 Hct 25.0 % (35.5-45.6) L D 10/28/18 05:23 MCV 100 fl (84-94) H 10/28/18 05:23 MCH 34 pg (28-32) H 10/28/18 05:23 MCHC 34 % (32-34) 10/28/18 05:23 RDW 13.2 % (13.2-15.2) 10/28/18 05:23 Plt Count 107 K/mm3 (140-440) L 10/28/18 05:23 Lymph % (Auto) 25.6 % (13.4-35.0) 10/26/18 05:42 [place] % (Auto) 7.7 % (0.0-7.3) H 10/26/18 05:42 Eos % (Auto) 5.1 % (0.0-4.3) H 10/26/18 05:42 Baso % (Auto) 0.6 % (0.0-1.8) 10/26/18 05:42 Lymph # 1.0 K/mm3 (1.2-5.4) L 10/26/18 05:42 [place] # 0.3 K/mm3 (0.0-0.8) 10/26/18 05:42 Eos # 0.2 K/mm3 (0.0-0.4) 10/26/18 05:42 Baso # 0.0 K/mm3 (0.0-0.1) 10/26/18 05:42 Seg Neutrophils % 61.0 % (40.0-70.0) 10/26/18 05:42 Seg Neutrophils # 2.5 K/mm3 (1.8-7.7) 10/26/18 05:42 Sodium 153 mmol/L (137-145) H 10/28/18 05:23 Potassium 4.0 mmol/L (3.6-5.0) 10/28/18 05:23 Chloride 109.5 mmol/L (98-107) H 10/28/18 05:23 Carbon Dioxide 22 mmol/L (22-30) 10/28/18 05:23 26 mmol/L 10/28/18 05:23 BUN 13 mg/dL (9-20) 10/28/18 05:23 1.9 mg/dL (0.8-1.5) H 10/28/18 05:23 Estimated GFR 42 ml/min 10/28/18 05:23 7 % 10/28/18 05:23 Glucose 66 mg/dL (75-100) L 10/28/18 05:23 POC Glucose 87 (70-105) 10/28/18 07:27 7.5 % (4-6) H 10/25/18 21:23 Calcium 7.4 mg/dL (8.4-10.2) L D 10/28/18 05:23 0.30 mg/dL (0.1-1.2) 10/26/18 05:42 AST 41 units/L (5-40) H 10/26/18 05:42 ALT 29 units/L (7-56) 10/26/18 05:42 65 units/L (35-129) 10/26/18 05:42 NT-Pro-B Natriuret Pep 1061 pg/mL (0-900) H 10/25/18 12:37 4.7 g/dL (6.3-8.2) L 10/26/18 05:42 2.7 g/dL (3.9-5) L 10/26/18 05:42 1.4 % 10/26/18 05:42 Active Medications - Current Medications Current Medications: Generic Name Dose Route Start Last Admin Trade Name Freq PRN Reason Stop Dose Admin Acetaminophen 650 mg 10/25/18 21:02 Tylenol PO Q4H PRN Pain MILD(1-3)/Fever >100.5/MCDONALD Amlodipine Besylate 5 mg 10/28/18 10:00 Norvasc PO DAILY EMILY Enoxaparin Sodium 40 mg 10/26/18 22:00 10/27/18 21:25 Lovenox SUB-Q 40 mg QDAY@2200 EMILY Administration Famotidine 20 mg 10/25/18 22:00 10/27/18 09:42 Pepcid PO 20 mg DAILY EMILY Administration Furosemide 20 mg 10/28/18 10:00 Lasix PO QDAY EMILY Ampicillin Sodium/Sulbactam Sodium 3 gm in 100 mls @ 100 mls/hr 10/26/18 00:00 10/28/18 05:16 Unasyn/Ns 3 Gm/100 Ml IV 100 mls/hr Q6HR EMILY Administration Protocol Vancomycin HCl 1 gm in 250 mls @ 166.667 mls/hr 10/26/18 22:00 10/27/18 21:24 Vancomycin/Ns 1 Gm/250 Ml IV 166.667 mls/hr Q24H EMILY Administration Sodium Chloride 500 mls @ 999 mls/hr 10/28/18 08:13 Nacl 0.9% 500 Ml IV 10/28/18 08:43 ONCE ONE Insulin Human Lispro 0 unit 10/26/18 07:30 10/27/18 22:49 Humalog SUB-Q 2 unit ACHS EMILY Administration Protocol Morphine Sulfate 2 mg 10/25/18 21:02 10/28/18 05:22 Morphine IV 2 mg Q4H PRN Administration Pain, Moderate (4-6) Ondansetron HCl 4 mg 10/25/18 21:02 Zofran IV Q8H PRN Nausea And Vomiting Oxycodone/Acetaminophen 1 tab 10/25/18 21:02 Percocet 5/325 PO Q6H PRN Pain, Moderate (4-6) Sodium Chloride 10 ml 10/25/18 22:00 10/27/18 21:25 Sodium Chloride Flush Syringe 10 Ml IV 10 ml BID EMILY Administration Sodium Chloride 10 ml 10/25/18 21:02 Sodium Chloride Flush Syringe 10 Ml IV PRN PRN LINE FLUSH Nutrition/Malnutrition Assess - Dietary Evaluation Nutrition/Malnutrition Findings: Nutrition Notes Start: 10/26/18 10:05 Freq: Status: Active Protocol: Document 10/26/18 10:05 LP (Rec: 10/26/18 10:10 LP [id number]) Nutrition Notes Need for 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 Pt states missing top teeth and some bottom but ok with regular consistency. Pt states appetite varies. Observed temporal wasting. Pt states wt last month was 111lbs. Wt gain could be due to edema. #1 Nutrition Diagnosis Malnutrition Etiology chronic illness As Evidenced by Signs and Symptoms leg edema, varied appetite, temporal wasting Is patient on ventilator? No Is Patient Ambulatory and/or Out of Bed Yes REE-([facility]-ambulatory/OOB) [ 1682.421 NUTR.MSJOOB] Calculation Used for Recommendations [facility] Additional Notes Protein needs are 71-88g (1.2- 1.5g/kg) Fluid needs are 1ml/kcal Nutrition Intervention Change Diet Order: Cardiac/consistent CHO Goal #1 Meet at least 80% of kcal and protein needs Anticipated Discharge Needs: Cardiac/consistent CHO Follow-Up By: 10/28/18 Additional Comments Follow for intakes
[2018-10-28] MEDS: LASIX PO SCH (09:55)
[2018-10-28] MEDS: PEPCID PO SCH (09:55)
[2018-10-28] MEDS: NORVASC PO SCH (09:56)
[2018-10-28] MEDS: SODIUM CHLORIDE FLUSH SYRINGE 10 ML IV SCH ×2 (09:56→22:07)
[2018-10-28] MEDS ORDERED: LASIX PO SCH (10:00)
[2018-10-28 14:11] LABS: Hematocrit 23.1 % (35.5-45.6); Hemoglobin 7.5 gm/dl (11.8-15.2)
[2018-10-28] MEDS ORDERED: LOVENOX SUB-Q SCH (22:00)
[2018-10-28] MEDS: VANCOMYCIN/NS 1 GM/250 ML 1 GM/250 ML BAG IV SCH (22:06)
[2018-10-28] MEDS ORDERED: D50W (25GM) Syringe IV ONE (22:29)
[2018-10-29 06:07] LABS: Hematocrit 20.8 % (35.5-45.6); Hemoglobin 6.8 gm/dl (11.8-15.2); Mean Corpuscular HGB Conc 33 % (32-34); Mean Corpuscular Volume 103 fl (84-94); Platelet Count 103 K/mm3 (140-440); Red Blood Count 2.02 M/mm3 (3.65-5.03); Red Cell Distribution Width 13.5 % (13.2-15.2)
[2018-10-29 06:27] LABS: Calcium 8.4 mg/dL (8.4-10.2)
[2018-10-29] MEDS: UNASYN/NS 3 GM/100 ML 3 GM/100 ML BAG IV SCH ×2 (06:33→19:09)
[2018-10-29] MEDS: HumaLOG SUB-Q SCH ×4 (07:25→22:16)
[2018-10-29] MEDS ORDERED: NACL 0.9% 500 ML 500 ML IV NR (08:56)
--- NOTE | 2018-10-29 09:47 | Consultation ---
History of Present Illness - Reason for Consult Consult date: 10/29/18 acute renal failure, chronic renal failure, accelerated hypertension Requesting physician: LAUREN CONCEPCION - History of Present Illness Patient is a 78-year-old Mong[place]ian male who has a past medical history of prostate cancer which is currently undergoing final stages of treatment hypertension and possibly congestive heart failure who is presenting with approximately 1-1-1/2 weeks of lower extremity edema that is progressively worsening. The patient states he has run out of some of his medications but he is not sure which ones. Patient is from [place] and fortunately does not remember the name as well as his medications. Patient states his leg swelling feels tight but denies any actual pain. He states there is no chest pain or shortness of breath. Patient has chronic lower back and abdominal discomfort is days secondary to his prostate cancer. He has no change in these pains at this time. Severity scale (0 -10): 8 ROS: Stated complaint: RT LEG PAIN/DIABETIC Other details as noted in HPI Comment: All other systems reviewed and negative - Past Medical History Previous Medical History?: Yes Hx Hypertension: Yes Hx Diabetes: Yes Hx Renal Disease: Yes (unknown stage) Hx of Cancer: Yes (prostate) - Social History Smoking Status: Never Smoker Substance Use Type: Alcohol Medications and Allergies Allergies Allergy/AdvReac Type Severity Reaction Status Date / Time No Known Allergies Allergy Verified 10/19/18 09:36 Home Medications Medication Instructions Recorded Confirmed Last Taken Type Amlodipine Besylate [Norvasc] 5 mg PO DAILY #7 tablet 10/19/18 10/25/18 Unknown Rx Furosemide [Lasix] 20 mg PO QDAY #20 tablet 10/19/18 10/25/18 Unknown Rx Furosemide [Lasix] 20 mg PO QDAY #7 tablet 10/19/18 10/25/18 Unknown Rx Active Meds: Active Medications Acetaminophen (Tylenol) 650 mg PO Q4H PRN PRN Reason: Pain MILD(1-3)/Fever >100.5/MCDONALD Amlodipine Besylate (Norvasc) 5 mg PO DAILY [facility] Last Admin: 10/28/18 09:56 Dose: 5 mg Documented by: Famotidine (Pepcid) 20 mg PO DAILY [facility] Last Admin: 10/28/18 09:55 Dose: 20 mg Documented by: Furosemide (Lasix) 40 mg PO QDAY [facility] Last Admin: 10/28/18 09:55 Dose: 40 mg Documented by: Ampicillin Sodium/Sulbactam Sodium (Unasyn/Ns 3 Gm/100 Ml) 3 gm in 100 mls @ 100 mls/hr IV Q12HR@0600,1800 [facility]; Protocol Last Admin: 10/29/18 06:33 Dose: 100 mls/hr Documented by: Sodium Chloride (Nacl 0.9% 500 Ml) 500 mls @ 0 mls/hr IV ONCE NR Stop: 10/30/18 08:55 Insulin Human Lispro (Humalog) 0 unit SUB-Q ACHS [facility]; Protocol Last Admin: 10/28/18 22:07 Dose: Not Given Documented by: Morphine Sulfate (Morphine) 2 mg IV Q4H PRN PRN Reason: Pain, Moderate (4-6) Last Admin: 10/28/18 05:22 Dose: 2 mg Documented by: Ondansetron HCl (Zofran) 4 mg IV Q8H PRN PRN Reason: Nausea And Vomiting Oxycodone/Acetaminophen (Percocet 5/325) 1 tab PO Q6H PRN PRN Reason: Pain, Moderate (4-6) Sodium Chloride (Sodium Chloride Flush Syringe 10 Ml) 10 ml IV BID [facility] Last Admin: 10/28/18 22:07 Dose: 10 ml Documented by: Sodium Chloride (Sodium Chloride Flush Syringe 10 Ml) 10 ml IV PRN PRN PRN Reason: LINE FLUSH Exam - Vital Signs Vital signs: Vital Signs Temp Pulse Resp BP Pulse Ox 97.7 F 92 H 16 139/67 100 10/25/18 10:57 10/25/18 10:57 10/25/18 10:57 10/25/18 10:57 10/25/18 10:57 - Physical Exam Narrative exam: - General Limitations: No Limitations General appearance: alert, in no apparent distress - Head Head exam: Present: atraumatic, normocephalic - Eye Eye exam: Present: normal appearance - ENT ENT exam: Present: mucous membranes moist - Neck Neck exam: Present: normal inspection - Respiratory Respiratory exam: Present: normal lung sounds bilaterally. Absent: respiratory distress, wheezes, rales, rhonchi, chest wall tenderness - Cardiovascular Cardiovascular Exam: Present: regular rate, normal rhythm, normal heart sounds. Absent: systolic murmur, diastolic murmur, rubs, gallop - GI/Abdominal GI/Abdominal exam: Present: soft, normal bowel sounds. Absent: distended, tenderness, guarding, rebound - Rectal Rectal exam: Present: deferred - Extremities Exam Extremities exam: Present: normal inspection, other (a short bilateral 3+ edema) - Back Exam Back exam: Present: normal inspection - Neurological Exam Neurological exam: Present: alert, oriented X3 - Psychiatric Psychiatric exam: Present: normal affect, normal mood - Skin Skin exam: Present: warm, dry, intact, normal color. 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
[2018-10-29] MEDS ORDERED: NACL 0.45% 1000 ML 1,000 ML IV SCH (11:00)
[2018-10-29] MEDS: SODIUM CHLORIDE FLUSH SYRINGE 10 ML IV SCH ×2 (11:03→22:17)
[2018-10-29] MEDS: PEPCID PO SCH (11:03)
[2018-10-29] MEDS: NORVASC PO SCH (11:05)
[2018-10-29] MEDS: LASIX PO SCH (11:06)
--- NOTE | 2018-10-29 11:37 | Gastroenterology Consultation ---
<CLIF DIA - Last Filed: 10/29/18 12:03> History of Present Illness - Reason for Consult Consult date: 10/29/18 GI bleed Requesting physician: LAUREN CONCEPCION - History of Present Illness Patient is a 78 y/o male with PMH of HTN, DM, renal disease, and prostate cancer who presented to ED with c/o increased swelling and redness of bilateral lower extremities. He was admitted and currently being treated for cellulitis and KRZYSZTOF on CKD. Patient/nursing reports rectal bleeding with BRBPR following BMs with noted drop in H/H (last episode overnight; no bleeding this am). GI has been consulted for GI bleeding. This morning patient was sitting up in bed eating breakfast w/o acute distress. He reports intermittent rectal bleeding with BMs for a long period of time (likely years; patient noted to be poor historian). He is unable to recall last colonoscopy or results but believes it was completed within the last couple of years in [place] where he resides. No hematemesis or melena. Admits to gradual, continued wt loss over the the past few years. Denies fever, CP, SOB, abd pain, N/V, diarrhea, or constipation. Unknown Fhx of GI cancers. Upon exam, rectal revealed non-bleeding external hemorrhoids and light brown stool. Past History Past Medical History: other (as per HPI) Past Surgical History: Other (unknown) Social history: alcohol abuse. denies: smoking Medications and Allergies Allergies Allergy/AdvReac Type Severity Reaction Status Date / Time No Known Allergies Allergy Verified 10/19/18 09:36 Home Medications Medication Instructions Recorded Confirmed Last Taken Type Amlodipine Besylate [Norvasc] 5 mg PO DAILY #7 tablet 10/19/18 10/25/18 Unknown Rx Furosemide [Lasix] 20 mg PO QDAY #20 tablet 10/19/18 10/25/18 Unknown Rx Furosemide [Lasix] 20 mg PO QDAY #7 tablet 10/19/18 10/25/18 Unknown Rx Active Meds: Active Medications Acetaminophen (Tylenol) 650 mg PO Q4H PRN PRN Reason: Pain MILD(1-3)/Fever >100.5/MCDONALD Amlodipine Besylate (Norvasc) 5 mg PO DAILY EMILY Last Admin: 10/29/18 11:05 Dose: 5 mg Documented by: Famotidine (Pepcid) 20 mg PO DAILY [facility] Last Admin: 10/29/18 11:03 Dose: 20 mg Documented by: Ampicillin Sodium/Sulbactam Sodium (Unasyn/Ns 3 Gm/100 Ml) 3 gm in 100 mls @ 100 mls/hr IV Q12HR@0600,1800 EMILY; Protocol Last Admin: 10/29/18 06:33 Dose: 100 mls/hr Documented by: Sodium Chloride (Nacl 0.9% 500 Ml) 500 mls @ 0 mls/hr IV ONCE NR Stop: 10/30/18 08:55 Sodium Chloride (Nacl 0.45% 1000 Ml) 1,000 mls @ 75 mls/hr IV DIRECT EMILY Insulin Human Lispro (Humalog) 0 unit SUB-Q ACHS [facility]; Protocol Last Admin: 10/29/18 07:25 Dose: 2 unit Documented by: Morphine Sulfate (Morphine) 2 mg IV Q4H PRN PRN Reason: Pain, Moderate (4-6) Last Admin: 10/28/18 05:22 Dose: 2 mg Documented by: Ondansetron HCl (Zofran) 4 mg IV Q8H PRN PRN Reason: Nausea And Vomiting Oxycodone/Acetaminophen (Percocet 5/325) 1 tab PO Q6H PRN PRN Reason: Pain, Moderate (4-6) Last Admin: 10/29/18 11:10 Dose: 1 tab Documented by: Sodium Chloride (Sodium Chloride Flush Syringe 10 Ml) 10 ml IV BID [facility] Last Admin: 10/29/18 11:03 Dose: 10 ml Documented by: Sodium Chloride (Sodium Chloride Flush Syringe 10 Ml) 10 ml IV PRN PRN PRN Reason: LINE FLUSH medications reviewed/updated as required Review of Systems - Review of Systems All systems: negative Gastrointestinal: hematochezia Exam - Constitutional Vital Signs: Temp Pulse Resp BP Pulse Ox 98.6 F 87 18 114/60 95 10/29/18 07:42 10/29/18 07:42 10/29/18 07:42 10/29/18 07:42 10/29/18 07:42 General appearance: no acute distress - Respiratory Respiratory: bilateral: CTA (anterior) - Cardiovascular Rhythm: regular - Gastrointestinal General gastrointestinal: Present: soft, non-tender, non-distended, normal bowel sounds Rectal Exam: other (external hemorroids (non-bleeding) and light brown stool- 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 (Yuko SHAIKH)) - Musculoskeletal Musculoskeletal: other (+edema BLE) - Labs CBC & Chem 7: 10/29/18 05:43 10/29/18 05:43 Lab Results: Laboratory Results - last 24 hr 10/28/18 10/28/18 10/28/18 11:49 13:45 13:45 WBC RBC Hgb 7.5 L Hct 23.1 L MCV MCH MCHC RDW Plt Count Sodium 143 D Potassium Chloride Carbon Dioxide Anion Gap BUN Creatinine Estimated GFR BUN/Creatinine Ratio Glucose POC Glucose 196 H Calcium Vancomycin Trough Blood Type Antibody Screen JOSE JUAN Antibody Screen Crossmatch 10/28/18 10/28/18 10/28/18 16:29 21:36 21:45 WBC RBC Hgb Hct MCV MCH MCHC RDW Plt Count Sodium Potassium Chloride Carbon Dioxide Anion Gap BUN Creatinine Estimated GFR BUN/Creatinine Ratio Glucose POC Glucose 239 H 46 L Calcium Vancomycin Trough 21.8 H Blood Type Antibody Screen JOSE JUAN Antibody Screen Crossmatch 10/28/18 10/29/18 10/29/18 22:11 00:09 05:43 WBC 6.9 RBC 2.02 L Hgb 6.8 L Hct 20.8 L MCV 103 H MCH 34 H MCHC 33 RDW 13.5 Plt Count 103 L Sodium Potassium Chloride Carbon Dioxide Anion Gap BUN Creatinine Estimated GFR BUN/Creatinine Ratio Glucose POC Glucose 54 L 169 H Calcium Vancomycin Trough Blood Type Antibody Screen JOSE JUAN Antibody Screen Crossmatch 10/29/18 10/29/18 10/29/18 05:43 07:55 08:55 WBC RBC Hgb Hct MCV MCH MCHC RDW Plt Count Sodium 144 Potassium 4.7 Chloride 109.2 H Carbon Dioxide 26 Anion Gap 14 BUN 18 Creatinine 2.2 H Estimated GFR 35 BUN/Creatinine Ratio 8 Glucose 106 H POC Glucose 169 H Calcium 8.4 Vancomycin Trough Blood Type B POSITIVE Antibody Screen TNR JOSE JUAN Antibody Screen Negative Crossmatch See Detail Assessment and Plan 1.GI bleed 2.anemia 3.H/O prostate cancer -H/H 6.8/20.8-trending down (transfusion PRBCs pending; baseline anemia compared to prior labs) -continue to monitor H/H and transfuse as needed -MCV 103 -patient reports chronic intermittent rectal bleeding with bright red blood following BMs. Last episode overnight per nursing. No hematemesis or melena. Rectal exam this am revealed non-bleeding external hemorrhoids and light brown stool -etiology unclear (proctitis? vs other) -will schedule a colonoscopy +/- EGD tomorrow for further evaluation -clear liquids today then NPO after MN -hold blood thinning medications -daily PPI -iron studies, folate, and B12 in am -continue supportive care -will follow 4.Cellulitis 5.KRZYSZTOF on CKD <YENNY BURNHAM - Last Filed: 10/29/18 13:11> Medications and Allergies Active Meds: Active Medications Acetaminophen (Tylenol) 650 mg PO Q4H PRN PRN Reason: Pain MILD(1-3)/Fever >100.5/MCDONALD Amlodipine Besylate (Norvasc) 5 mg PO DAILY [facility] Last Admin: 10/29/18 11:05 Dose: 5 mg Documented by: Ampicillin Sodium/Sulbactam Sodium (Unasyn/Ns 3 Gm/100 Ml) 3 gm in 100 mls @ 100 mls/hr IV Q12HR@0600,1800 EMILY; Protocol Last Admin: 10/29/18 06:33 Dose: 100 mls/hr Documented by: Sodium Chloride (Nacl 0.9% 500 Ml) 500 mls @ 0 mls/hr IV ONCE NR Stop: 10/30/18 08:55 Sodium Chloride (Nacl 0.45% 1000 Ml) 1,000 mls @ 75 mls/hr IV DIRECT EMILY Insulin Human Lispro (Humalog) 0 unit SUB-Q ACHS [facility]; Protocol Last Admin: 10/29/18 07:25 Dose: 2 unit Documented by: Morphine Sulfate (Morphine) 2 mg IV Q4H PRN PRN Reason: Pain, Moderate (4-6) Last Admin: 10/28/18 05:22 Dose: 2 mg Documented by: Ondansetron HCl (Zofran) 4 mg IV Q8H PRN PRN Reason: Nausea And Vomiting Oxycodone/Acetaminophen (Percocet 5/325) 1 tab PO Q6H PRN PRN Reason: Pain, Moderate (4-6) Last Admin: 10/29/18 11:10 Dose: 1 tab Documented by: Pantoprazole Sodium (Protonix) 40 mg PO QDAY [facility] Sodium Chloride (Sodium Chloride Flush Syringe 10 Ml) 10 ml IV BID [facility] Last Admin: 10/29/18 11:03 Dose: 10 ml Documented by: Sodium Chloride (Sodium Chloride Flush Syringe 10 Ml) 10 ml IV PRN PRN PRN Reason: LINE FLUSH Exam - Constitutional Vital Signs: Temp Pulse Resp BP Pulse Ox 98.6 F 87 18 114/60 95 10/29/18 07:42 10/29/18 07:42 10/29/18 07:42 10/29/18 07:42 10/29/18 07:42 - Labs CBC & Chem 7: 10/29/18 05:43 10/29/18 05:43 Lab Results: Laboratory Results - last 24 hr 10/28/18 10/28/18 10/28/18 13:45 13:45 16:29 WBC RBC Hgb 7.5 L Hct 23.1 L MCV MCH MCHC RDW Plt Count Sodium 143 D Potassium Chloride Carbon Dioxide Anion Gap BUN Creatinine Estimated GFR BUN/Creatinine Ratio Glucose POC Glucose 239 H Calcium Vancomycin Trough Random Vancomycin Hep Bs Antigen Hepatitis C Antibody Blood Type Antibody Screen JOSE JUAN Antibody Screen Crossmatch 10/28/18 10/28/18 10/28/18 21:36 21:45 22:11 WBC RBC Hgb Hct MCV MCH MCHC RDW Plt Count Sodium Potassium Chloride Carbon Dioxide Anion Gap BUN Creatinine Estimated GFR BUN/Creatinine Ratio Glucose POC Glucose 46 L 54 L Calcium Vancomycin Trough 21.8 H Random Vancomycin Hep Bs Antigen Hepatitis C Antibody Blood Type Antibody Screen JOSE JUAN Antibody Screen Crossmatch 10/29/18 10/29/18 10/29/18 00:09 05:43 05:43 WBC 6.9 RBC 2.02 L Hgb 6.8 L Hct 20.8 L MCV 103 H MCH 34 H MCHC 33 RDW 13.5 Plt Count 103 L Sodium 144 Potassium 4.7 Chloride 109.2 H Carbon Dioxide 26 Anion Gap 14 BUN 18 Creatinine 2.2 H Estimated GFR 35 BUN/Creatinine Ratio 8 Glucose 106 H POC Glucose 169 H Calcium 8.4 Vancomycin Trough Random Vancomycin Hep Bs Antigen Hepatitis C Antibody Blood Type Antibody Screen JOSE JUAN Antibody Screen Crossmatch 10/29/18 10/29/18 10/29/18 07:55 08:55 10:29 WBC RBC Hgb Hct MCV MCH MCHC RDW Plt Count Sodium Potassium Chloride Carbon Dioxide Anion Gap BUN Creatinine Estimated GFR BUN/Creatinine Ratio Glucose POC Glucose 169 H Calcium Vancomycin Trough Random Vancomycin Hep Bs Antigen Hepatitis C Antibody Non-reactive Blood Type B POSITIVE Antibody Screen TNR JOSE JUAN Antibody Screen Negative Crossmatch See Detail 10/29/18 10/29/18 10/29/18 10:29 10:29 11:43 WBC RBC Hgb Hct MCV MCH MCHC RDW Plt Count Sodium Potassium Chloride Carbon Dioxide Anion Gap BUN Creatinine Estimated GFR BUN/Creatinine Ratio Glucose POC Glucose 211 H Calcium Vancomycin Trough Random Vancomycin 29.5 Hep Bs Antigen Non-reactive Hepatitis C Antibody Blood Type Antibody Screen JOSE JUAN Antibody Screen Crossmatch Assessment and Plan Patient seen and examined. Agree with note above. Will plan for egd/colonosc opy tomorrow for gi bleed and anemia. rest as above.
[2018-10-29] MEDS ORDERED: GOLYTELY PO ONE (12:38)
--- NOTE | 2018-10-29 13:39 | Progress Note ---
Assessment and Plan Assessment and plan: 78-year-old male with history of HTN,Prostate cancer in remission comes in for Increasing swelling of both legs especially feet for 3 weeks.Also redness of both feet.Patient came to this ER 6 days ago and was treated for lower extremity swelling with Lasix and to follow up with pcp.Patient comes back for increasing swelling of the legs and worsening redness of both feet.No sob on exertion.No orthopnea. No fever or chills. No recent travel. CXR: ?Pulmonary emphysema or asthma with large lung volumes Precipitatous drop in HGB/Pancytopenia -Minimal blood in stool from known hemorrhoids, chronic -Follow H/H repeat at 12noon -Consult GI Cellulitis, ulcers both legs and feet Admitted to [facility] Continue Unasyn and vanco Consulted wound care nurse Hypernatremia - Will monitor KRZYSZTOF secondary to vasomotor nephropathy - Change lasix back to PO at 40mg daily -Given some gentle hydration -Discontinue Vancomycin -Consult Neprhology B/l LOWER EXT SWELLING -?Secondary to above mentioned cellulitis -Check Echo -Doppler lower ext is negative. Hyperkalemia. Now resolved after Kayexalate Discontinued k-dur he was using from home. Hypocalcemia -Monitor Hypertension Monitor BP Debility: PT/OT/ History of prostate cancer full code status History Interval history: Patient seen and examine this am, no further bleeding noted. But patient noted to have lower hgb today. Hospitalist Physical - Physical exam Narrative exam: Gen: Not in acute distress, lying in bed, HEENT: Normocephalic, atraumatic Neck: supple, no JVD Heart: S1 and S2 reg, no murmurs, rubs or gallop Lungs: Clear, no crackles, no wheeze Abd: soft, non tender, non distended, normal BS Ext: Bilateral leg and feet ulcers, dressing in place, swelling, erythema,no clubbing, no cyanosis, Neuro: Awake,alert, oriented x 3, moves all ext, non focal Psych:Normal mood - Constitutional Vitals: Temp Pulse Resp BP Pulse Ox 98.6 F 87 18 114/60 96 10/29/18 07:42 10/29/18 07:42 10/29/18 07:42 10/29/18 07:42 10/29/18 10:00 General appearance: Present: no acute distress, well-nourished Results - Labs CBC & Chem 7: 10/29/18 05:43 10/29/18 05:43 Labs: Laboratory Last Values WBC 6.9 K/mm3 (4.5-11.0) 10/29/18 05:43 RBC 2.02 M/mm3 (3.65-5.03) L 10/29/18 05:43 Hgb 6.8 gm/dl (11.8-15.2) L 10/29/18 05:43 Hct 20.8 % (35.5-45.6) L 10/29/18 05:43 MCV 103 fl (84-94) H 10/29/18 05:43 MCH 34 pg (28-32) H 10/29/18 05:43 MCHC 33 % (32-34) 10/29/18 05:43 RDW 13.5 % (13.2-15.2) 10/29/18 05:43 Plt Count 103 K/mm3 (140-440) L 10/29/18 05:43 Lymph % (Auto) 25.6 % (13.4-35.0) 10/26/18 05:42 [place] % (Auto) 7.7 % (0.0-7.3) H 10/26/18 05:42 Eos % (Auto) 5.1 % (0.0-4.3) H 10/26/18 05:42 Baso % (Auto) 0.6 % (0.0-1.8) 10/26/18 05:42 Lymph # 1.0 K/mm3 (1.2-5.4) L 10/26/18 05:42 [place] # 0.3 K/mm3 (0.0-0.8) 10/26/18 05:42 Eos # 0.2 K/mm3 (0.0-0.4) 10/26/18 05:42 Baso # 0.0 K/mm3 (0.0-0.1) 10/26/18 05:42 Seg Neutrophils % 61.0 % (40.0-70.0) 10/26/18 05:42 Seg Neutrophils # 2.5 K/mm3 (1.8-7.7) 10/26/18 05:42 Sodium 144 mmol/L (137-145) 10/29/18 05:43 Potassium 4.7 mmol/L (3.6-5.0) 10/29/18 05:43 Chloride 109.2 mmol/L (98-107) H 10/29/18 05:43 Carbon Dioxide 26 mmol/L (22-30) 10/29/18 05:43 14 mmol/L 10/29/18 05:43 BUN 18 mg/dL (9-20) 10/29/18 05:43 2.2 mg/dL (0.8-1.5) H 10/29/18 05:43 Estimated GFR 35 ml/min 10/29/18 05:43 8 % 10/29/18 05:43 Glucose 106 mg/dL (75-100) H 10/29/18 05:43 POC Glucose 211 (70-105) H 10/29/18 11:43 7.5 % (4-6) H 10/25/18 21:23 Calcium 8.4 mg/dL (8.4-10.2) 10/29/18 05:43 0.30 mg/dL (0.1-1.2) 10/26/18 05:42 AST 41 units/L (5-40) H 10/26/18 05:42 ALT 29 units/L (7-56) 10/26/18 05:42 65 units/L (35-129) 10/26/18 05:42 NT-Pro-B Natriuret Pep 1061 pg/mL (0-900) H 10/25/18 12:37 4.7 g/dL (6.3-8.2) L 10/26/18 05:42 2.7 g/dL (3.9-5) L 10/26/18 05:42 1.4 % 10/26/18 05:42 Vancomycin Trough 21.8 ug/mL (5.0-20.0) H 10/28/18 21:36 Random Vancomycin 29.5 ug/mL (0-40.0) 10/29/18 10:29 Hep Bs Antigen Non-reactive (Negative) 10/29/18 10:29 Non-reactive (NonReactive) 10/29/18 10:29 Blood Type B POSITIVE 10/29/18 08:55 Antibody Screen TNR 10/29/18 08:55 JOSE JUAN Antibody Screen Negative 10/29/18 08:55 Crossmatch See Detail 10/29/18 08:55 Active Medications - Current Medications Current Medications: Generic Name Dose Route Start Last Admin Trade Name Freq PRN Reason Stop Dose Admin Acetaminophen 650 mg 10/25/18 21:02 Tylenol PO Q4H PRN Pain MILD(1-3)/Fever >100.5/MCDONALD Amlodipine Besylate 5 mg 10/28/18 10:00 10/29/18 11:05 Norvasc PO 5 mg DAILY EMILY Administration Ampicillin Sodium/Sulbactam Sodium 3 gm in 100 mls @ 100 mls/hr 10/28/18 18:00 10/29/18 06:33 Unasyn/Ns 3 Gm/100 Ml IV 100 mls/hr Q12HR@0600,1800 EMILY Administration Protocol Sodium Chloride 500 mls @ 0 mls/hr 10/29/18 08:56 Nacl 0.9% 500 Ml IV 10/30/18 08:55 ONCE NR As Directed Sodium Chloride 1,000 mls @ 75 mls/hr 10/29/18 11:00 Nacl 0.45% 1000 Ml IV DIRECT EMILY Insulin Human Lispro 0 unit 10/26/18 07:30 10/29/18 07:25 Humalog SUB-Q 2 unit ACHS [facility] Administration Protocol Morphine Sulfate 2 mg 10/25/18 21:02 10/28/18 05:22 Morphine IV 2 mg Q4H PRN Administration Pain, Moderate (4-6) Ondansetron HCl 4 mg 10/25/18 21:02 Zofran IV Q8H PRN Nausea And Vomiting Oxycodone/Acetaminophen 1 tab 10/25/18 21:02 10/29/18 11:10 Percocet 5/325 PO 1 tab Q6H PRN Administration Pain, Moderate (4-6) Pantoprazole Sodium 40 mg 10/29/18 13:00 Protonix PO QDAY EMILY Sodium Chloride 10 ml 10/25/18 22:00 10/29/18 11:03 Sodium Chloride Flush Syringe 10 Ml IV 10 ml BID EMILY Administration Sodium Chloride 10 ml 10/25/18 21:02 Sodium Chloride Flush Syringe 10 Ml IV PRN PRN LINE FLUSH Nutrition/Malnutrition Assess - Dietary Evaluation Nutrition/Malnutrition Findings: Nutrition Notes Start: 10/26/18 10:05 Freq: Status: Active Protocol: Document 10/28/18 09:17 LP (Rec: 10/28/18 09:21 LP [id number]) Nutrition Notes Initial or Follow up Reassessment Current Diagnosis Diabetes,Hypertension Other Pertinent Diagnosis leg edema, hx prostate CA Current Diet Cardiac/consistent CHO Labs/Tests Na 153 Cr 1.9 Pertinent Medications Reviewed Height 5 ft 8 in Weight 58.967 kg [place] Body Weight (kg) 70.00 BMI 19.8 Subjective/Other Information Pt states eating well. Eating breakfast at time of visit. Pt was at 30% at time of visit and consuming 100% of meals. Percent of energy/protein needs met: 98%/100% Burn Absent Trauma Absent #1 Nutrition Diagnosis Malnutrition Diagnosis Progress(for reassessment Continues documentation) Is patient on ventilator? No Is Patient Ambulatory and/or Out of Bed Yes REE-([facility]-ambulatory/OOB) [ [id number] [id number]] Calculation Used for Recommendations [facility] Additional Notes Protein needs are 71-88g (1.2- 1.5g/kg) Fluid needs are 1ml/kcal Nutrition Intervention Change Diet Order: Continue Cardiac/consistent CHO Add Supplement/Snack (indicate name/kcal Glucerna TID butter pecan /protein ) Provides kCal: 660 Provides Protein (gm) 30 Goal #1 Meet at least 80% of kcal and protein needs Anticipated Discharge Needs: Cardiac/consistent CHO and ONS BID to TID Follow-Up By: 10/31/18 Additional Comments Follow for stable intakes
[2018-10-29] MEDS: PROTONIX PO SCH (16:38)
[2018-10-30 04:39] LABS: Basophils % (Auto) 0.1 % (0.0-1.8); Eosinophils # (Auto) 0.1 K/mm3 (0.0-0.4); Hematocrit 29.3 % (35.5-45.6); Hemoglobin 9.9 gm/dl (11.8-15.2); Lymphocytes # (Auto) 0.8 K/mm3 (1.2-5.4); Lymphocytes % (Auto) 13.3 % (13.4-35.0); Mean Corpuscular HGB Conc 34 % (32-34); Mean Corpuscular Volume 97 fl (84-94); Monocytes # (Auto) 0.5 K/mm3 (0.0-0.8); Monocytes % (Auto) 8.2 % (0.0-7.3); Red Blood Count 3.01 M/mm3 (3.65-5.03); Red Cell Distribution Width 16.2 % (13.2-15.2)
[2018-10-30 04:41] LABS: Platelet Count 70 K/mm3 (140-440)
[2018-10-30 05:22] LABS: Bilirubin,Urine NEG (Negative); Blood,Urine SM (Negative); Color,Urine Yellow (Yellow); Protein,Urine <15 mg/dL mg/dL (Negative); Urobilinogen,Urine < 2.0 mg/dL (<2.0)
[2018-10-30 05:44] LABS: BUN/Creatinine Ratio 8; Blood Urea Nitrogen 17 mg/dL (9-20); Calcium 7.8 mg/dL (8.4-10.2); Hemolysis Index 13; Iron 144 ug/dL (49-181)
[2018-10-30 05:47] LABS: Creatinine,Urine 70.7 mg/dL (0.1-20.0)
[2018-10-30] MEDS: UNASYN/NS 3 GM/100 ML 3 GM/100 ML BAG IV SCH ×2 (05:56→19:02)
--- NOTE | 2018-10-30 07:29 | Progress Note ---
Assessment and Plan Assessment and plan: 78-year-old male with history of HTN,Prostate cancer in remission comes in for Increasing swelling of both legs especially feet for 3 weeks.Also redness of both feet.Patient came to this ER 6 days ago and was treated for lower extremity swelling with Lasix and to follow up with pcp.Patient comes back for increasing swelling of the legs and worsening redness of both feet.No sob on exertion.No orthopnea. No fever or chills. No recent travel. CXR: ?Pulmonary emphysema or asthma with large lung volumes Endoscopy today Renal improving. Vanc level noted and discontinued possible discharge tomorrow if renal better and based on recommendation from PT/OT Precipitatous drop in HGB/Pancytopenia -Minimal blood in stool from known hemorrhoids, chronic -S/P 2 Unit prbc -Consult GI in put noted. -Radiation proctitis and internal hemmorrhoids noted on endscopy- could be source of bleeding. -Diverticular as noted Cellulitis, ulcers both legs and feet Continue Unasyn Consulted wound care nurse Hypernatremia - Will monitor KRZYSZTOF secondary to vasomotor nephropathy - LASIX HELD -Given some gentle hydration -Discontinue Vancomycin -Consult Neprhology B/l LOWER EXT SWELLING -?Secondary to above mentioned cellulitis - improving -Check Echo -Doppler lower ext is negative. Hyperkalemia. Now resolved after Kayexalate Discontinued k-dur he was using from home. Hypocalcemia -Monitor Hypertension Monitor BP Debility: PT/OT/ History of prostate cancer full code status History Interval history: Patient seen and examine this am, no further bleeding noted. Hgb stable post transfusion. Patient is for Endoscopy today Hospitalist Physical - Physical exam Narrative exam: Gen: Not in acute distress, lying in bed, HEENT: Normocephalic, atraumatic Neck: supple, no JVD Heart: S1 and S2 reg, no murmurs, rubs or gallop Lungs: Clear, no crackles, no wheeze Abd: soft, non tender, non distended, normal BS Ext: Bilateral leg and feet ulcers, dressing in place, swelling, erythema,no clubbing, no cyanosis, Neuro: Awake,alert, oriented x 3, moves all ext, non focal Psych:Normal mood - Constitutional Vitals: Temp Pulse Resp BP Pulse Ox 98.3 F 80 20 144/72 94 10/30/18 01:58 05/30/19 01:58 10/30/18 01:58 10/30/18 01:58 10/30/18 01:58 General appearance: Present: no acute distress, well-nourished Results - Labs CBC & Chem 7: 10/30/18 03:40 10/30/18 03:40 Labs: Laboratory Last Values WBC 5.7 K/mm3 (4.5-11.0) 10/30/18 03:40 RBC 3.01 M/mm3 (3.65-5.03) L 10/30/18 03:40 Hgb 9.9 gm/dl (11.8-15.2) L D 10/30/18 03:40 Hct 29.3 % (35.5-45.6) L D 10/30/18 03:40 MCV 97 fl (84-94) H 10/30/18 03:40 MCH 33 pg (28-32) H 10/30/18 03:40 MCHC 34 % (32-34) 10/30/18 03:40 RDW 16.2 % (13.2-15.2) H 10/30/18 03:40 Plt Count 70 K/mm3 (140-440) L 10/30/18 03:40 Lymph % (Auto) 13.3 % (13.4-35.0) L 10/30/18 03:40 [place] % (Auto) 8.2 % (0.0-7.3) H 10/30/18 03:40 Eos % (Auto) 2.0 % (0.0-4.3) 10/30/18 03:40 Baso % (Auto) 0.1 % (0.0-1.8) 10/30/18 03:40 Lymph # 0.8 K/mm3 (1.2-5.4) L 10/30/18 03:40 [place] # 0.5 K/mm3 (0.0-0.8) 10/30/18 03:40 Eos # 0.1 K/mm3 (0.0-0.4) 10/30/18 03:40 Baso # 0.0 K/mm3 (0.0-0.1) 10/30/18 03:40 Seg Neutrophils % 76.4 % (40.0-70.0) H 10/30/18 03:40 Seg Neutrophils # 4.3 K/mm3 (1.8-7.7) 10/30/18 03:40 Sodium 139 mmol/L (137-145) 10/30/18 03:40 Potassium 4.6 mmol/L (3.6-5.0) 10/30/18 03:40 Chloride 102.4 mmol/L (98-107) 10/30/18 03:40 Carbon Dioxide 23 mmol/L (22-30) 10/30/18 03:40 18 mmol/L 10/30/18 03:40 BUN 17 mg/dL (9-20) 10/30/18 03:40 2.1 mg/dL (0.8-1.5) H 10/30/18 03:40 Estimated GFR 37 ml/min 10/30/18 03:40 8 % 10/30/18 03:40 Glucose 70 mg/dL (75-100) L 10/30/18 03:40 POC Glucose 82 (70-105) 10/30/18 06:41 7.5 % (4-6) H 10/25/18 21:23 Calcium 7.8 mg/dL (8.4-10.2) L 10/30/18 03:40 Iron 144 ug/dL (49-181) 10/30/18 03:40 271.1 ng/mL (13.0-400.0) 10/30/18 03:40 0.30 mg/dL (0.1-1.2) 10/26/18 05:42 AST 41 units/L (5-40) H 10/26/18 05:42 ALT 29 units/L (7-56) 10/26/18 05:42 65 units/L (35-129) 10/26/18 05:42 NT-Pro-B Natriuret Pep 1061 pg/mL (0-900) H 10/25/18 12:37 4.7 g/dL (6.3-8.2) L 10/26/18 05:42 2.7 g/dL (3.9-5) L 10/26/18 05:42 1.4 % 10/26/18 05:42 Vitamin B12 814.9 pg/mL (211-911) 10/30/18 03:40 Yellow (Yellow) 10/30/18 04:50 Clear (Clear) 10/30/18 04:50 7.0 (5.0-7.0) 10/30/18 04:50 Ur Specific [place] 1.012 (1.003-1.030) 10/30/18 04:50 <15 mg/dl mg/dL (Negative) 10/30/18 04:50 Neg mg/dL (Negative) 10/30/18 04:50 Neg mg/dL (Negative) 10/30/18 04:50 Sm (Negative) 10/30/18 04:50 Neg (Negative) 10/30/18 04:50 Neg (Negative) 10/30/18 04:50 < 2.0 mg/dL (<2.0) 10/30/18 04:50 Ur Leukocyte Esterase Neg (Negative) 10/30/18 04:50 1.0 /HPF (0.0-6.0) 10/30/18 04:50 1.0 /HPF (0.0-6.0) 10/30/18 04:50 U Epithel Cells (Auto) < 1.0 /HPF (0-13.0) 10/30/18 04:50 None seen (None Seen) 10/30/18 04:50 70.7 mg/dL (0.1-20.0) H 10/30/18 04:50 99 mmol/L 10/30/18 04:50 Vancomycin Trough 21.8 ug/mL (5.0-20.0) H 10/28/18 21:36 Random Vancomycin 29.5 ug/mL (0-40.0) 10/29/18 10:29 Hep Bs Antigen Non-reactive (Negative) 10/29/18 10:29 Non-reactive (NonReactive) 10/29/18 10:29 Blood Type B POSITIVE 10/29/18 08:55 Antibody Screen TNR 10/29/18 08:55 JOSE JUAN Antibody Screen Negative 10/29/18 08:55 Crossmatch See Detail 10/29/18 08:55 Active Medications - Current Medications Current Medications: Generic Name Dose Route Start Last Admin Trade Name Freq PRN Reason Stop Dose Admin Acetaminophen 650 mg 10/25/18 21:02 Tylenol PO Q4H PRN Pain MILD(1-3)/Fever >100.5/MCDONALD Amlodipine Besylate 5 mg 05/28/19 10:00 10/29/18 11:05 Norvasc PO 5 mg DAILY EMILY Administration Ampicillin Sodium/Sulbactam Sodium 3 gm in 100 mls @ 100 mls/hr 10/28/18 18:00 10/30/18 05:56 Unasyn/Ns 3 Gm/100 Ml IV 100 mls/hr Q12HR@0600,1800 EMILY Administration Protocol Sodium Chloride 500 mls @ 0 mls/hr 10/29/18 08:56 Nacl 0.9% 500 Ml IV 10/30/18 08:55 ONCE NR As Directed Sodium Chloride 1,000 mls @ 75 mls/hr 10/29/18 11:00 Nacl 0.45% 1000 Ml IV DIRECT EMILY Sodium Chloride 1,000 mls @ 50 mls/hr 10/30/18 08:00 Nacl 0.9% 1000 Ml IV DIRECT EMILY Insulin Human Lispro 0 unit 10/26/18 07:30 10/29/18 22:16 Humalog SUB-Q Not Given ACHS [facility] Protocol Morphine Sulfate 2 mg 10/25/18 21:02 10/28/18 05:22 Morphine IV 2 mg Q4H PRN Administration Pain, Moderate (4-6) Ondansetron HCl 4 mg 10/25/18 21:02 Zofran IV Q8H PRN Nausea And Vomiting Oxycodone/Acetaminophen 1 tab 10/25/18 21:02 10/29/18 11:10 Percocet 5/325 PO 1 tab Q6H PRN Administration Pain, Moderate (4-6) Pantoprazole Sodium 40 mg 10/29/18 13:00 10/29/18 16:38 Protonix PO 40 mg QDAY EMILY Administration Sodium Chloride 10 ml 10/25/18 22:00 10/29/18 22:17 Sodium Chloride Flush Syringe 10 Ml IV 10 ml BID EMILY Administration Sodium Chloride 10 ml 10/25/18 21:02 Sodium Chloride Flush Syringe 10 Ml IV PRN PRN LINE FLUSH Nutrition/Malnutrition Assess - Dietary Evaluation Nutrition/Malnutrition Findings: Nutrition Notes Start: 10/26/18 10:05 Freq: Status: Active Protocol: Document 10/28/18 09:17 LP (Rec: 10/28/18 09:21 LP [id number]) Nutrition Notes Initial or Follow up Reassessment Current Diagnosis Diabetes,Hypertension Other Pertinent Diagnosis leg edema, hx prostate CA Current Diet Cardiac/consistent CHO Labs/Tests Na 153 Cr 1.9 Pertinent Medications Reviewed Height 5 ft 8 in Weight 58.967 kg [place] Body Weight (kg) 70.00 BMI 19.8 Subjective/Other Information Pt states eating well. Eating breakfast at time of visit. Pt was at 30% at time of visit and consuming 100% of meals. Percent of energy/protein needs met: 98%/100% Burn Absent Trauma Absent #1 Nutrition Diagnosis Malnutrition Diagnosis Progress(for reassessment Continues documentation) Is patient on ventilator? No Is Patient Ambulatory and/or Out of Bed Yes REE-([facility]-ambulatory/OOB) [ 1682.421 NUTR.MSJOOB] Calculation Used for Recommendations [facility] Additional Notes Protein needs are 71-88g (1.2- 1.5g/kg) Fluid needs are 1ml/kcal Nutrition Intervention Change Diet Order: Continue Cardiac/consistent CHO Add Supplement/Snack (indicate name/kcal Glucerna TID butter pecan /protein ) Provides kCal: 660 Provides Protein (gm) 30 Goal #1 Meet at least 80% of kcal and protein needs Anticipated Discharge Needs: Cardiac/consistent CHO and ONS BID to TID Follow-Up By: 10/31/18 Additional Comments Follow for stable intakes
[2018-10-30] MEDS: HumaLOG SUB-Q SCH ×4 (07:30→22:40)
[2018-10-30 07:39] LABS: Total Iron Binding Capacity 144 mcg/dL (250-450)
[2018-10-30] MEDS: NORVASC PO SCH (10:00)
[2018-10-30] MEDS: PROTONIX PO SCH (10:00)
[2018-10-30] MEDS: SODIUM CHLORIDE FLUSH SYRINGE 10 ML IV SCH ×2 (10:01→21:38)
--- NOTE | 2018-10-30 10:01 | Progress Note ---
Assessment and Plan Impression: * KRZYSZTOF on ckd * cellulitis * intravascular depletion * Vanco toxicity * HTN * Type 2 DM Plan: * urine lytes noted * cr is better today * follow up vanco levels, may have atn due to toxicity * follow up renal us and pvr * strict i/os * hold lasix, gentle ivfs * daily lytes * no indication for BE[facility]ER Subjective Date of service: 10/30/18 Principal diagnosis: krzysztof Interval history: resting in bed today Objective - Exam Narrative Exam: - General Limitations: No Limitations General appearance: alert, in no apparent distress - Head Head exam: Present: atraumatic, normocephalic - Eye Eye exam: Present: normal appearance - ENT ENT exam: Present: mucous membranes moist - Neck Neck exam: Present: normal inspection - Respiratory Respiratory exam: Present: normal lung sounds bilaterally. Absent: respiratory distress, wheezes, rales, rhonchi, chest wall tenderness - Cardiovascular Cardiovascular Exam: Present: regular rate, normal rhythm, normal heart sounds. Absent: systolic murmur, diastolic murmur, rubs, gallop - GI/Abdominal GI/Abdominal exam: Present: soft, normal bowel sounds. Absent: distended, tenderness, guarding, rebound - Rectal Rectal exam: Present: deferred - Extremities Exam Extremities exam: Present: normal inspection, other (a short bilateral 3+ edema) - Back Exam Back exam: Present: normal inspection - Neurological Exam Neurological exam: Present: alert, oriented X3 - Psychiatric Psychiatric exam: Present: normal affect, normal mood - Skin Skin exam: Present: warm, dry, intact, normal color. Absent: rash - Vital Signs Vital signs: Vital Signs - 12hr 10/29/18 10/29/18 10/30/18 22:03 22:30 01:58 Temperature 97.5 F L 97.6 F 98.3 F Pulse Rate 72 70 80 Respiratory 18 18 20 Rate Blood Pressure 140/70 138/70 144/72 O2 Sat by Pulse 100 100 94 Oximetry - Lab 10/30/18 03:40 10/30/18 03:40 Most recent lab results Calcium 7.8 mg/dL (8.4-10.2) L 10/30/18 03:40 70.7 mg/dL (0.1-20.0) H 10/30/18 04:50 99 mmol/L 10/30/18 04:50 Medications & Allergies - Medications Allergies/Adverse Reactions: Allergies No Known Allergies Allergy (Verified 10/19/18 09:36) Home Medications: Home Medications Medication Instructions Recorded Confirmed Last Taken Type Amlodipine Besylate [Norvasc] 5 mg PO DAILY #7 tablet 10/19/18 10/25/18 Unknown Rx Furosemide [Lasix] 20 mg PO QDAY #20 tablet 10/19/18 10/25/18 Unknown Rx Furosemide [Lasix] 20 mg PO QDAY #7 tablet 10/19/18 10/25/18 Unknown Rx Active Medications: Generic Name Dose Route Start Last Admin Trade Name Freq PRN Reason Stop Dose Admin Acetaminophen 650 mg 10/25/18 21:02 Tylenol PO Q4H PRN Pain MILD(1-3)/Fever >100.5/MCDONALD Amlodipine Besylate 5 mg 10/28/18 10:00 10/29/18 11:05 Norvasc PO 5 mg DAILY EMILY Administration Ampicillin Sodium/Sulbactam Sodium 3 gm in 100 mls @ 100 mls/hr 10/28/18 18:00 10/30/18 05:56 Unasyn/Ns 3 Gm/100 Ml IV 100 mls/hr Q12HR@0600,1800 EMILY Administration Protocol Sodium Chloride 1,000 mls @ 75 mls/hr 10/29/18 11:00 Nacl 0.45% 1000 Ml IV DIRECT EMILY Sodium Chloride 1,000 mls @ 50 mls/hr 10/30/18 08:00 Nacl 0.9% 1000 Ml IV DIRECT EMILY Insulin Human Lispro 0 unit 10/26/18 07:30 10/29/18 22:16 Humalog SUB-Q Not Given ACHS EMILY Protocol Morphine Sulfate 2 mg 10/25/18 21:02 10/28/18 05:22 Morphine IV 2 mg Q4H PRN Administration Pain, Moderate (4-6) Ondansetron HCl 4 mg 10/25/18 21:02 Zofran IV Q8H PRN Nausea And Vomiting Oxycodone/Acetaminophen 1 tab 10/25/18 21:02 10/29/18 11:10 Percocet 5/325 PO 1 tab Q6H PRN Administration Pain, Moderate (4-6) Pantoprazole Sodium 40 mg 10/29/18 13:00 10/29/18 16:38 Protonix PO 40 mg QDAY EMILY Administration Sodium Chloride 10 ml 10/25/18 22:00 10/29/18 22:17 Sodium Chloride Flush Syringe 10 Ml IV 10 ml BID EMILY Administration Sodium Chloride 10 ml 10/25/18 21:02 Sodium Chloride Flush Syringe 10 Ml IV PRN PRN LINE FLUSH
[2018-10-30 13:06] LABS: Protein/Creatinine Ratio,Urine 0.41
[2018-10-30] MEDS ORDERED: WATER FOR IRRIG STERILE IR ONE (13:38)
[2018-10-30] MEDS ORDERED: WATER FOR IRRIG STERILE ONE (13:38)
[2018-10-30] MEDS ORDERED: D50W (25GM) Syringe IV ONE ×2 (13:43)
[2018-10-30] MEDS: NACL 0.9% 1000 ML 1,000 ML IV SCH (13:55)
[2018-10-30] MEDS ORDERED: AMIDATE IV ONE (14:13)
[2018-10-30] MEDS ORDERED: DIPRIVAN 10 MG/ML IV ONE (14:13)
--- NOTE | 2018-10-30 14:35 | Operative Report ---
Operative Report Operative Report: Colonoscopy Procedure Note Date of procedure: 10/30/2018 Endoscopist: Aleksander Cuba Pre-op diagnosis: Hematochezia Post-op diagnosis: Radiation proctitis, internal hemorrhoids Anesthesia: MAC Complications: No immediate complications Estimated blood loss: None Procedure: After consent was obtained, the patient was placed in the left lateral decubitus position. The Olympus colonoscope was inserted into the patient's rectum under direct vision, and advanced to the cecum without difficulty. The patient tolerated the procedure well. The views of the mucosa were good. The quality of prep was good. The patient's vital signs were monitored continuously throughout the procedure. Findings: There was evidence of mild radiation proctitis in the distal rectum. No active bleeding was seen. Large internal hemorrhoids. Scattered diverticula in the colon. Impression: 1. Mild radiation proctitis 2. Internal hemorrhoids 3. Diverticulosis Recent hematochezia could be from hemorrhoids vs radiation proctitis. no high risk lesions or active bleeding at time of procedure Recommendations: -hemorrhoidal cream/suppository prn -high fiber diet -consider canasa suppository if hematochezia returns
[2018-10-30] MEDS ORDERED: HEMORRHOIDAL 0.25/3/85.5% PR PRN (17:36)
[2018-10-30] MEDS ORDERED: PROCTOSOL-HC PR PRN (17:44)
[2018-10-31 05:29] LABS: Basophils % (Auto) 0.2 % (0.0-1.8); Eosinophils # (Auto) 0.1 K/mm3 (0.0-0.4); Eosinophils % (Auto) 2.3 % (0.0-4.3); Hematocrit 25.3 % (35.5-45.6); Hemoglobin 8.4 gm/dl (11.8-15.2); Lymphocytes # (Auto) 0.5 K/mm3 (1.2-5.4); Lymphocytes % (Auto) 11.6 % (13.4-35.0); Mean Corpuscular HGB Conc 33 % (32-34); Mean Corpuscular Volume 98 fl (84-94); Monocytes # (Auto) 0.4 K/mm3 (0.0-0.8); Monocytes % (Auto) 9.9 % (0.0-7.3); Red Blood Count 2.58 M/mm3 (3.65-5.03); Red Cell Distribution Width 15.6 % (13.2-15.2)
[2018-10-31 05:47] LABS: Platelet Count 85 K/mm3 (140-440)
[2018-10-31 05:53] LABS: Calcium 7.7 mg/dL (8.4-10.2)
[2018-10-31] MEDS: UNASYN/NS 3 GM/100 ML 3 GM/100 ML BAG IV SCH ×2 (06:40→17:28)
[2018-10-31] MEDS: HumaLOG SUB-Q SCH ×4 (07:30→21:55)
--- NOTE | 2018-10-31 07:54 | Progress Note ---
Assessment and Plan Assessment and plan: 78-year-old male with history of HTN,Prostate cancer in remission comes in for Increasing swelling of both legs especially feet for 3 weeks.Also redness of both feet.Patient came to this ER 6 days ago and was treated for lower extremity swelling with Lasix and to follow up with pcp.Patient comes back for increasing swelling of the legs and worsening redness of both feet.No sob on exertion.No orthopnea. No fever or chills. No recent travel. CXR: ?Pulmonary emphysema or asthma with large lung volumes Hypoglycemia -Change sliding scale to low dose -Monitor, following D5 Administration Precipitatous drop in HGB/Pancytopenia -Minimal blood in stool from known hemorrhoids, chronic -S/P 2 Unit prbc -hgb Trended down slightly, will monitor -Consult GI in put noted. Radiation proctitis Large internal hemmorrhoids noted on endscopy- could be source of bleeding. Scattered Diverticular as noted -Continue hemorrhoidal cream Cellulitis, ulcers both legs and feet Continue Unasyn Consulted wound care nurse Hypernatremia - Will monitor KRZYSZTOF secondary to vasomotor nephropathy - LASIX HELD - Continue hydration and monitor vanc level. - Nephrology input appreciated B/l LOWER EXT SWELLING-improving -?Secondary to above mentioned cellulitis -EF on echo 55-60% with noted dystolic dysfunction -Doppler lower ext is negative. Hyperkalemia. Now resolved after Kayexalate Discontinued k-dur he was using from home. Severe Protein Calorie Malnutrition Hypocalcemia -Monitor Hypertension Monitor BP Debility: PT/OT- [facility] DISCHAR[facility] History of prostate cancer full code status Renal function stable, awaiting Nephrology input for discharge. History Interval history: Patient seen and examine this am, no further bleeding noted. Hgb stable post transfusion. No new bleeding complaints Hospitalist Physical - Physical exam Narrative exam: Gen: Not in acute distress, lying in bed, HEENT: Normocephalic, atraumatic Neck: supple, no JVD Heart: S1 and S2 reg, no murmurs, rubs or gallop Lungs: Clear, no crackles, no wheeze Abd: soft, non tender, non distended, normal BS Ext: Bilateral leg and feet ulcers, dressing in place, swelling, erythema,no cl ubbing, no cyanosis, Neuro: Awake,alert, oriented x 3, moves all ext, non focal Psych:Normal mood - Constitutional Vitals: Temp Pulse Resp BP Pulse Ox 98.3 F 80 20 128/64 98 10/31/18 02:34 10/30/18 22:00 10/31/18 02:34 10/31/18 02:34 10/30/18 22:00 General appearance: Present: no acute distress, well-nourished Results - Labs CBC & Chem 7: 10/31/18 04:18 10/31/18 04:18 Labs: Laboratory Last Values WBC 4.5 K/mm3 (4.5-11.0) 10/31/18 04:18 RBC 2.58 M/mm3 (3.65-5.03) L 10/31/18 04:18 Hgb 8.4 gm/dl (11.8-15.2) L 10/31/18 04:18 Hct 25.3 % (35.5-45.6) L 10/31/18 04:18 MCV 98 fl (84-94) H 10/31/18 04:18 MCH 33 pg (28-32) H 10/31/18 04:18 MCHC 33 % (32-34) 10/31/18 04:18 RDW 15.6 % (13.2-15.2) H 10/31/18 04:18 Plt Count 85 K/mm3 (140-440) L 10/31/18 04:18 Lymph % (Auto) 11.6 % (13.4-35.0) L 10/31/18 04:18 [place] % (Auto) 9.9 % (0.0-7.3) H 10/31/18 04:18 Eos % (Auto) 2.3 % (0.0-4.3) 10/31/18 04:18 Baso % (Auto) 0.2 % (0.0-1.8) 10/31/18 04:18 Lymph # 0.5 K/mm3 (1.2-5.4) L 10/31/18 04:18 [place] # 0.4 K/mm3 (0.0-0.8) 10/31/18 04:18 Eos # 0.1 K/mm3 (0.0-0.4) 10/31/18 04:18 Baso # 0.0 K/mm3 (0.0-0.1) 10/31/18 04:18 Seg Neutrophils % 76.0 % (40.0-70.0) H 10/31/18 04:18 Seg Neutrophils # 3.5 K/mm3 (1.8-7.7) 10/31/18 04:18 Sodium 140 mmol/L (137-145) 10/31/18 04:18 Potassium 4.3 mmol/L (3.6-5.0) 10/31/18 04:18 Chloride 107.1 mmol/L (98-107) H 10/31/18 04:18 Carbon Dioxide 21 mmol/L (22-30) L 10/31/18 04:18 16 mmol/L 10/31/18 04:18 BUN 17 mg/dL (9-20) 10/31/18 04:18 2.1 mg/dL (0.8-1.5) H 10/31/18 04:18 Estimated GFR 37 ml/min 10/31/18 04:18 8 % 10/31/18 04:18 Glucose 47 mg/dL (75-100) L 10/31/18 04:18 POC Glucose 292 (70-105) H 10/30/18 22:38 7.5 % (4-6) H 10/25/18 21:23 Calcium 7.7 mg/dL (8.4-10.2) L 10/31/18 04:18 Iron 144 ug/dL (49-181) 10/30/18 03:40 TIBC 144 mcg/dL (250-450) L 10/30/18 03:40 271.1 ng/mL (13.0-400.0) 10/30/18 03:40 0.30 mg/dL (0.1-1.2) 10/26/18 05:42 AST 41 units/L (5-40) H 10/26/18 05:42 ALT 29 units/L (7-56) 10/26/18 05:42 65 units/L (35-129) 10/26/18 05:42 NT-Pro-B Natriuret Pep 1061 pg/mL (0-900) H 10/25/18 12:37 4.7 g/dL (6.3-8.2) L 10/26/18 05:42 2.7 g/dL (3.9-5) L 10/26/18 05:42 1.4 % 10/26/18 05:42 Vitamin B12 814.9 pg/mL (211-911) 10/30/18 03:40 > 20.0 ng/mL (7.3-26.0) 10/30/18 03:40 Yellow (Yellow) 10/30/18 04:50 Clear (Clear) 10/30/18 04:50 7.0 (5.0-7.0) 10/30/18 04:50 Ur Specific [place] 1.012 (1.003-1.030) 10/30/18 04:50 <15 mg/dl mg/dL (Negative) 10/30/18 04:50 Neg mg/dL (Negative) 10/30/18 04:50 Neg mg/dL (Negative) 10/30/18 04:50 Sm (Negative) 10/30/18 04:50 Neg (Negative) 10/30/18 04:50 Neg (Negative) 10/30/18 04:50 < 2.0 mg/dL (<2.0) 10/30/18 04:50 Ur Leukocyte Esterase Neg (Negative) 10/30/18 04:50 1.0 /HPF (0.0-6.0) 10/30/18 04:50 1.0 /HPF (0.0-6.0) 10/30/18 04:50 U Epithel Cells (Auto) < 1.0 /HPF (0-13.0) 10/30/18 04:50 None seen (None Seen) 10/30/18 04:50 70.7 mg/dL (0.1-20.0) H 10/30/18 04:50 Protein/Creatinin Ratio 0.41 10/30/18 04:50 99 mmol/L 10/30/18 04:50 29 mg/dL (5-11.8) H 10/30/18 04:50 Vancomycin Trough 21.8 ug/mL (5.0-20.0) H 10/28/18 21:36 Random Vancomycin 24.2 ug/mL (0-40.0) 10/30/18 11:30 Hep Bs Antigen Non-reactive (Negative) 10/29/18 10:29 Non-reactive (NonReactive) 10/29/18 10:29 Blood Type B POSITIVE 10/29/18 08:55 Antibody Screen TNR 10/29/18 08:55 JOSE JUAN Antibody Screen Negative 10/29/18 08:55 Crossmatch See Detail 10/29/18 08:55 Active Medications - Current Medications Current Medications: Generic Name Dose Route Start Last Admin Trade Name Freq PRN Reason Stop Dose Admin Acetaminophen 650 mg 10/25/18 21:02 Tylenol PO Q4H PRN Pain MILD(1-3)/Fever >100.5/MCDONALD Amlodipine Besylate 5 mg 10/28/18 10:00 10/30/18 10:00 Norvasc PO Not Given DAILY EMILY Hydrocortisone Acetate 1 applic 10/30/18 17:44 Proctosol-Hc ME Q8H PRN Hemorrhoids Ampicillin Sodium/Sulbactam Sodium 3 gm in 100 mls @ 100 mls/hr 10/28/18 18:00 10/31/18 06:40 Unasyn/Ns 3 Gm/100 Ml IV 100 mls/hr Q12HR@0600,1800 EMILY Administration Protocol Sodium Chloride 1,000 mls @ 75 mls/hr 10/29/18 11:00 10/30/18 19:37 Nacl 0.45% 1000 Ml IV 75 mls/hr DIRECT EMILY Administration Sodium Chloride 1,000 mls @ 50 mls/hr 10/30/18 08:00 10/30/18 13:55 Nacl 0.9% 1000 Ml IV 50 mls/hr DIRECT EMILY Administration Insulin Human Lispro 0 unit 10/26/18 07:30 10/30/18 22:40 Humalog SUB-Q 4 unit ACHS EMILY Administration Protocol Morphine Sulfate 2 mg 10/25/18 21:02 10/28/18 05:22 Morphine IV 2 mg Q4H PRN Administration Pain, Moderate (4-6) Ondansetron HCl 4 mg 10/25/18 21:02 Zofran IV Q8H PRN Nausea And Vomiting Oxycodone/Acetaminophen 1 tab 10/25/18 21:02 10/29/18 11:10 Percocet 5/325 PO 1 tab Q6H PRN Administration Pain, Moderate (4-6) Pantoprazole Sodium 40 mg 10/29/18 13:00 10/30/18 10:00 Protonix PO Not Given QDAY EMILY Sodium Chloride 10 ml 10/25/18 22:00 10/30/18 21:38 Sodium Chloride Flush Syringe 10 Ml IV 10 ml BID EMILY Administration Sodium Chloride 10 ml 10/25/18 21:02 Sodium Chloride Flush Syringe 10 Ml IV PRN PRN LINE FLUSH Nutrition/Malnutrition Assess - Dietary Evaluation Nutrition/Malnutrition Findings: Nutrition Notes Start: 10/26/18 10:05 Freq: Status: Active Protocol: Document 10/28/18 09:17 LP (Rec: 10/28/18 09:21 LP [id number]) Nutrition Notes Initial or Follow up Reassessment Current Diagnosis Diabetes,Hypertension Other Pertinent Diagnosis leg edema, hx prostate CA Current Diet Cardiac/consistent CHO Labs/Tests Na 153 Cr 1.9 Pertinent Medications Reviewed Height 5 ft 8 in Weight 58.967 kg [place] Body Weight (kg) 70.00 BMI 19.8 Subjective/Other Information Pt states eating well. Eating breakfast at time of visit. Pt was at 30% at time of visit and consuming 100% of meals. Percent of energy/protein needs met: 98%/100% Burn Absent Trauma Absent #1 Nutrition Diagnosis Malnutrition Diagnosis Progress(for reassessment Continues documentation) Is patient on ventilator? No Is Patient Ambulatory and/or Out of Bed Yes REE-([facility]-ambulatory/OOB) [ 1682.421 NUTR.MSJOOB] Calculation Used for Recommendations [facility] Additional Notes Protein needs are 71-88g (1.2- 1.5g/kg) Fluid needs are 1ml/kcal Nutrition Intervention Change Diet Order: Continue Cardiac/consistent CHO Add Supplement/Snack (indicate name/kcal Glucerna TID butter pecan /protein ) Provides kCal: 660 Provides Protein (gm) 30 Goal #1 Meet at least 80% of kcal and protein needs Anticipated Discharge Needs: Cardiac/consistent CHO and ONS BID to TID Follow-Up By: 10/31/18 Additional Comments Follow for stable intakes
--- NOTE | 2018-10-31 09:12 | Ultrasound Report ---
PROCEDURE: US RENAL BILAT, US BLADDER RESIDUAL TECHNIQUE: Renal and bladder ultrasound. HISTORY: renal failure COMPARISONS: None currently available. FINDINGS: RIGHT kidney: 9.1 x 4.9 x 5.2 cm. Cortex measures 1.3 cm. Normal echotexture. No focal renal mass, ca lculus, or hydronephrosis. LEFT kidney: 9.7 x 5.2 x 5.5 cm. Cortex measures 1.7 cm. Normal echotexture. No focal renal mass, kiki culus, or hydronephrosis. Bladder: Within normal limits. No mass, stone, or wall thickening. Pre-void: 90 mL Post-void: 1.5 mL IMPRESSION: * Unremarkable. This document is electronically signed by Abhay Leon MD., Oct 31 2018 09:10:08 AM ET
--- NOTE | 2018-10-31 10:23 | Gastroenterology Progress Note ---
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 Denies abd pain or N/V. -continue hemorrhoidal cream -high fiber diet -recommend canasa suppository if bleeding returns -continue supportive care -no further recommendations per GI standpoint at this time -will sign off, please call if needed 4.Cellulitis 5.KRZYSZTOF on CKD Subjective Date of service: 10/31/18 Principal diagnosis: GI bleed Interval history: Patient sitting up on the side of the bed this am w/o acute distress. No active signs of bleeding overnight or this am. Denies abd pain or N/V. Objective - Constitutional Vitals: Temp Pulse Resp BP Pulse Ox 97.9 F 76 18 132/66 100 10/31/18 07:11 10/31/18 07:11 10/31/18 07:11 10/31/18 07:11 10/31/18 07:11 General appearance: no acute distress - Respiratory Respiratory: bilateral: CTA (anterior) - Cardiovascular Rhythm: regular - Gastrointestinal General gastrointestinal: Present: soft, non-tender, non-distended, normal bowel sounds - Labs CBC & Chem 7: 10/31/18 04:18 10/31/18 04:18 Labs: Laboratory Results - last 24 hr 10/30/18 10/30/18 10/30/18 04:50 11:30 11:47 WBC RBC Hgb Hct MCV MCH MCHC RDW Plt Count Lymph % (Auto) [place] % (Auto) Eos % (Auto) Baso % (Auto) Lymph # [place] # Eos # Baso # Seg Neutrophils % Seg Neutrophils # Sodium Potassium Chloride Carbon Dioxide Anion Gap BUN Creatinine Estimated GFR BUN/Creatinine Ratio Glucose POC Glucose 61 L Calcium Protein/Creatinin Ratio 0.41 Urine Total Protein 29 H Random Vancomycin 24.2 10/30/18 10/30/18 10/30/18 14:13 14:59 16:23 WBC RBC Hgb Hct MCV MCH MCHC RDW Plt Count Lymph % (Auto) [place] % (Auto) Eos % (Auto) Baso % (Auto) Lymph # [place] # Eos # Baso # Seg Neutrophils % Seg Neutrophils # Sodium Potassium Chloride Carbon Dioxide Anion Gap BUN Creatinine Estimated GFR BUN/Creatinine Ratio Glucose POC Glucose 114 H 94 93 Calcium Protein/Creatinin Ratio Urine Total Protein Random Vancomycin 10/30/18 10/31/18 10/31/18 22:38 04:18 04:18 WBC 4.5 RBC 2.58 L Hgb 8.4 L Hct 25.3 L MCV 98 H MCH 33 H MCHC 33 RDW 15.6 H Plt Count 85 L Lymph % (Auto) 11.6 L [place] % (Auto) 9.9 H Eos % (Auto) 2.3 Baso % (Auto) 0.2 Lymph # 0.5 L [place] # 0.4 Eos # 0.1 Baso # 0.0 Seg Neutrophils % 76.0 H Seg Neutrophils # 3.5 Sodium 140 Potassium 4.3 Chloride 107.1 H Carbon Dioxide 21 L Anion Gap 16 BUN 17 Creatinine 2.1 H Estimated GFR 37 BUN/Creatinine Ratio 8 Glucose 47 L POC Glucose 292 H Calcium 7.7 L Protein/Creatinin Ratio Urine Total Protein Random Vancomycin 10/31/18 07:16 WBC RBC Hgb Hct MCV MCH MCHC RDW Plt Count Lymph % (Auto) [place] % (Auto) Eos % (Auto) Baso % (Auto) Lymph # [place] # Eos # Baso # Seg Neutrophils % Seg Neutrophils # Sodium Potassium Chloride Carbon Dioxide Anion Gap BUN Creatinine Estimated GFR BUN/Creatinine Ratio Glucose POC Glucose 78 Calcium Protein/Creatinin Ratio Urine Total Protein Random Vancomycin <YENNY BURNHAM - Last Filed: 10/31/18 16:30> Assessment and Plan Pt seen and examined. Agree with note above. Follow-up in GI clinic in 1 month; please call as needed. Objective - Constitutional Vitals: Temp Pulse Resp BP Pulse Ox 97.4 F L 46 L 18 111/59 96 10/31/18 13:18 10/31/18 13:18 10/31/18 13:18 10/31/18 13:18 10/31/18 13:18 - Labs CBC & Chem 7: 10/31/18 04:18 10/31/18 04:18 Labs: Laboratory Results - last 24 hr 10/30/18 10/31/18 10/31/18 22:38 04:18 04:18 WBC 4.5 RBC 2.58 L Hgb 8.4 L Hct 25.3 L MCV 98 H MCH 33 H MCHC 33 RDW 15.6 H Plt Count 85 L Lymph % (Auto) 11.6 L [place] % (Auto) 9.9 H Eos % (Auto) 2.3 Baso % (Auto) 0.2 Lymph # 0.5 L [place] # 0.4 Eos # 0.1 Baso # 0.0 Seg Neutrophils % 76.0 H Seg Neutrophils # 3.5 Sodium 140 Potassium 4.3 Chloride 107.1 H Carbon Dioxide 21 L Anion Gap 16 BUN 17 Creatinine 2.1 H Estimated GFR 37 BUN/Creatinine Ratio 8 Glucose 47 L POC Glucose 292 H Calcium 7.7 L Random Vancomycin 10/31/18 10/31/18 10/31/18 07:16 09:53 11:25 WBC RBC Hgb Hct MCV MCH MCHC RDW Plt Count Lymph % (Auto) [place] % (Auto) Eos % (Auto) Baso % (Auto) Lymph # [place] # Eos # Baso # Seg Neutrophils % Seg Neutrophils # Sodium Potassium Chloride Carbon Dioxide Anion Gap BUN Creatinine Estimated GFR BUN/Creatinine Ratio Glucose POC Glucose 78 176 H Calcium Random Vancomycin 18.8
[2018-10-31] MEDS: PROTONIX PO SCH (10:37)
[2018-10-31] MEDS: NORVASC PO SCH (10:37)
[2018-10-31] MEDS: SODIUM CHLORIDE FLUSH SYRINGE 10 ML IV SCH ×2 (10:39→21:50)
--- NOTE | 2018-10-31 11:16 | Progress Note ---
Assessment and Plan Impression: * KRZYSZTOF on ckd * cellulitis * intravascular depletion * Vanco toxicity * HTN * Type 2 DM Plan: * urine lytes noted * cr is stable today * follow up vanco levels, may have atn due to toxicity * follow up renal us and pvr * strict i/os * hold lasix, stop * add po tums * daily lytes * no indication for DISP[employer] PILOT Subjective Date of service: 10/31/18 Principal diagnosis: GI bleed Interval history: resting in bed today Objective - Exam Narrative Exam: - General Limitations: No Limitations General appearance: alert, in no apparent distress - Head Head exam: Present: atraumatic, normocephalic - Eye Eye exam: Present: normal appearance - ENT ENT exam: Present: mucous membranes moist - Neck Neck exam: Present: normal inspection - Respiratory Respiratory exam: Present: normal lung sounds bilaterally. Absent: respiratory distress, wheezes, rales, rhonchi, chest wall tenderness - Cardiovascular Cardiovascular Exam: Present: regular rate, normal rhythm, normal heart sounds. Absent: systolic murmur, diastolic murmur, rubs, gallop - GI/Abdominal GI/Abdominal exam: Present: soft, normal bowel sounds. Absent: distended, tenderness, guarding, rebound - Rectal Rectal exam: Present: deferred - Extremities Exam Extremities exam: Present: normal inspection, other (a short bilateral 3+ edema) - Back Exam Back exam: Present: normal inspection - Neurological Exam Neurological exam: Present: alert, oriented X3 - Psychiatric Psychiatric exam: Present: normal affect, normal mood - Skin Skin exam: Present: warm, dry, intact, normal color. Absent: rash - Vital Signs Vital signs: Vital Signs - 12hr 10/31/18 10/31/18 10/31/18 02:34 07:11 10:37 Temperature 98.3 F 97.9 F Pulse Rate 76 76 Respiratory 20 18 Rate Blood Pressure 128/64 132/66 132/66 O2 Sat by Pulse 100 Oximetry - Lab 10/31/18 04:18 10/31/18 04:18 Most recent lab results Calcium 7.7 mg/dL (8.4-10.2) L 10/31/18 04:18 70.7 mg/dL (0.1-20.0) H 10/30/18 04:50 99 mmol/L 10/30/18 04:50 29 mg/dL (5-11.8) H 10/30/18 04:50 Medications & Allergies - Medications Allergies/Adverse Reactions: Allergies No Known Allergies Allergy (Verified 10/19/18 09:36) Home Medications: Home Medications Medication Instructions Recorded Confirmed Last Taken Type Amlodipine Besylate [Norvasc] 5 mg PO DAILY #7 tablet 10/19/18 10/25/18 Unknown Rx Furosemide [Lasix] 20 mg PO QDAY #20 tablet 10/19/18 10/25/18 Unknown Rx Furosemide [Lasix] 20 mg PO QDAY #7 tablet 10/19/18 10/25/18 Unknown Rx Active Medications: Generic Name Dose Route Start Last Admin Trade Name Freq PRN Reason Stop Dose Admin Acetaminophen 650 mg 10/25/18 21:02 Tylenol PO Q4H PRN Pain MILD(1-3)/Fever >100.5/MCDONALD Amlodipine Besylate 5 mg 10/28/18 10:00 10/31/18 10:37 Norvasc PO 5 mg DAILY EMILY Administration Hydrocortisone Acetate 1 applic 10/30/18 17:44 Proctosol-Hc [place] Q8H PRN Hemorrhoids Ampicillin Sodium/Sulbactam Sodium 3 gm in 100 mls @ 100 mls/hr 10/28/18 18:00 10/31/18 06:40 Unasyn/Ns 3 Gm/100 Ml IV 100 mls/hr Q12HR@0600,1800 EMILY Administration Protocol Sodium Chloride 1,000 mls @ 75 mls/hr 10/29/18 11:00 10/30/18 19:37 Nacl 0.45% 1000 Ml IV 75 mls/hr DIRECT EMILY Administration Sodium Chloride 1,000 mls @ 50 mls/hr 10/30/18 08:00 10/30/18 13:55 Nacl 0.9% 1000 Ml IV 50 mls/hr DIRECT EMILY Administration Insulin Human Lispro 0 unit 10/26/18 07:30 10/31/18 07:30 Humalog SUB-Q Not Given ACHS EMILY Protocol Morphine Sulfate 2 mg 10/25/18 21:02 10/28/18 05:22 Morphine IV 2 mg Q4H PRN Administration Pain, Moderate (4-6) Ondansetron HCl 4 mg 10/25/18 21:02 Zofran IV Q8H PRN Nausea And Vomiting Oxycodone/Acetaminophen 1 tab 10/25/18 21:02 10/29/18 11:10 Percocet 5/325 PO 1 tab Q6H PRN Administration Pain, Moderate (4-6) Pantoprazole Sodium 40 mg 10/29/18 13:00 10/31/18 10:37 Protonix PO 40 mg QDAY EMILY Administration Sodium Chloride 10 ml 10/25/18 22:00 10/31/18 10:39 Sodium Chloride Flush Syringe 10 Ml IV 10 ml BID EMILY Administration Sodium Chloride 10 ml 10/25/18 21:02 Sodium Chloride Flush Syringe 10 Ml IV PRN PRN LINE FLUSH
[2018-10-31] MEDS: TUMS PO SCH ×2 (12:21→21:49)
[2018-11-01] MEDS: UNASYN/NS 3 GM/100 ML 3 GM/100 ML BAG IV SCH ×2 (06:24→17:12)
[2018-11-01] MEDS: HumaLOG SUB-Q SCH ×4 (07:00→23:30)
[2018-11-01 07:25] LABS: Basophils % (Auto) 0.2 % (0.0-1.8); Eosinophils # (Auto) 0.1 K/mm3 (0.0-0.4); Eosinophils % (Auto) 3.3 % (0.0-4.3); Hematocrit 24.3 % (35.5-45.6); Hemoglobin 8.3 gm/dl (11.8-15.2); Lymphocytes # (Auto) 0.6 K/mm3 (1.2-5.4); Mean Corpuscular HGB Conc 34 % (32-34); Mean Corpuscular Volume 98 fl (84-94); Monocytes # (Auto) 0.4 K/mm3 (0.0-0.8); Monocytes % (Auto) 9.5 % (0.0-7.3); Red Blood Count 2.49 M/mm3 (3.65-5.03); Red Cell Distribution Width 15.2 % (13.2-15.2)
[2018-11-01 07:44] LABS: Platelet Count 89 K/mm3 (140-440)
[2018-11-01] MEDS: PROTONIX PO SCH (09:51)
[2018-11-01] MEDS: NORVASC PO SCH (09:52)
[2018-11-01] MEDS: SODIUM CHLORIDE FLUSH SYRINGE 10 ML IV SCH ×2 (09:52→21:24)
[2018-11-01] MEDS: TUMS PO SCH ×2 (11:00→21:24)
--- NOTE | 2018-11-01 11:04 | Discharge Summary ---
Providers - Providers Date of Admission: 10/25/18 14:17 Attending physician: LAUREN CONCEPCION MD 10/26/18 11:40 Consult to Wound/ET Nurse [CONS] Routine Reason For Exam: wound eval 10/28/18 11:58 Occupational Therapy Evaluate and Treat [CONS] Routine Comment: Reason For Exam: ataxia Physical Therapy Evaluation and Treat [CONS] Routine Comment: Reason For Exam: ataxia 10/29/18 08:57 Consult to Physician [CONS] Routine Comment: SPOKE TO CLIF/ESPERANZA Consulting Provider: CHRIS RICHARDS Physician Instructions: Reason For Exam: gi bleed possible hemmoridal 10/29/18 09:01 Consult to Physician [CONS] Routine Comment: dr. crooks saw pat. Consulting Provider: DANELLE CROOKS Physician Instructions: Reason For Exam: KRZYSZTOF Primary care physician: FREDRICK MOTLEY Hospitalization Reason for admission: gi bleed Condition: Stable Hospital course: 78-year-old male with history of HTN,Prostate cancer in remission comes in for Increasing swelling of both legs especially feet for 3 weeks.Also redness of both feet.Patient came to this ER 6 days ago and was treated for lower extremity swelling with Lasix and to follow up with pcp.Patient comes back for increasing swelling of the legs and worsening redness of both feet.No sob on exertion.No orthopnea. No fever or chills. No recent travel. Patient during this admission has received transfusion and GI to evaluate the patient Underwent Endoscopy with Findings of Radiation Proctitis, Large Intestinal Hemorrhoid, and Multiple Scattered Diverticula. Patient Was Started on Hemorrhoidal Cream. Recommended to Follow up with GI Outpatient. We'll Also Noted to Be Hypoglycemic for Which She Was Changed to D5 Saline and Insulin Adjusted. Patient during Hospitalization Was Noted to Have Acute Kidney Injury Lasix Was Discontinued Especially in the Setting of Preserved EF Function Although Patient Has Underlying Diastolic Dysfunction. Nephrology Visited the Patient's Vancomycin Levels Were Checked and Has Remained Stable. Hemoglobin Has Remained Stable Abdomen Mildly Trended down. Patient Is Recommended to Follow up with Nephrology, Gastroenterology and Also Cardiology Outpatient. Along with Primary Care Physician for Ongoing Workup. CXR: ?Pulmonary emphysema or asthma with large lung volumes Hypoglycemia -stable Precipitatous drop in HGB/Pancytopenia -Minimal blood in stool from known hemorrhoids, chronic -S/P 2 Unit prbc Radiation proctitis Large internal hemmorrhoids noted on endscopy- could be source of bleeding. Scattered Diverticular as noted Continue hemorrhoidal cream Cellulitis, ulcers both legs and feet Continue Unasyn Consulted wound care nurse Hypernatremia KRZYSZTOF secondary to vasomotor nephropathy - LASIX HELD and nephrology followed B/l LOWER EXT SWELLING-improving -?Secondary to above mentioned cellulitis -EF on echo 55-60% with noted dystolic dysfunction -Doppler lower ext is negative. Hyperkalemia. Now resolved after Kayexalate Discontinued k-dur he was using from home. Severe Protein Calorie Malnutrition Hypocalcemia -Monitor Hypertension Monitor BP Debility: PT/OT- [facility] History of prostate cancer Disposition: TO HOME OR SELFCARE Time spent for discharge: 35 mins Core Measure Documentation - Palliative Care Palliative Care/ Comfort Measures: Not Applicable - Core Measures Any of the following diagnoses?: none Exam - Physical Exam Narrative exam: Gen: Not in acute distress HEENT: Normocephalic, atraumatic Neck: supple, no JVD Heart: S1 and S2 reg, no murmurs, rubs or gallop Lungs: Clear, no crackles, no wheeze Abd: soft, non tender, non distended, normal BS Ext: Bilateral leg and feet ulcers, dressing in place, swelling, erythema,no clubbing, no cyanosis, Neuro: Awake,alert, oriented x 3, moves all ext, non focal Psych:Normal mood - Constitutional Vitals: Temp Pulse Resp BP Pulse Ox 97.5 F L 73 18 128/67 100 11/01/18 07:30 11/01/18 09:52 11/01/18 07:30 11/01/18 09:52 11/01/18 07:30 Plan Activity: advance as tolerated, fall precautions Diet: low fat, renal Wound: per wound nurse instructions Special Instructions: record daily weights, record daily BP diary, record blood sugar diary, physical therapy, occupational therapy, home health RN (neel zavala) Additional Instructions: follow with Nephrology for repeat BMP in 2-3 days Follow up with: EMILY BROOKS MD [Staff Physician] - 7 Days YENNY BURNHAM MD [Staff Physician] - 7 Days PRIMARY CARE, [Referring] - 3-5 Days NYDIA ERNST MD [Staff Physician] - 7 Days SUNIL SHAH MD [Staff Physician] - 7 Days Prescriptions: Bumetanide (Nf) [Bumex 0.5mg tab] 0.5 mg PO DAILY #30 tab Hydrocortisone 2.5% [Proctosol-Hc] 1 applic [place] Q8H PRN #1 tube PRN Reason: Hemorrhoids Pantoprazole [Protonix TAB] 40 mg PO QDAY #30 tablet
--- NOTE | 2018-11-01 12:02 | Progress Note ---
Assessment and Plan Assessment and plan: 78-year-old male with history of HTN,Prostate cancer in remission comes in for Increasing swelling of both legs especially feet for 3 weeks.Also redness of both feet.Patient came to this ER 6 days ago and was treated for lower extremity swelling with Lasix and to follow up with pcp.Patient comes back for increasing swelling of the legs and worsening redness of both feet.No sob on exertion.No orthopnea. No fever or chills. No recent travel. Patient during this admission has received transfusion of the paravertebral cell GI to evaluate the patient Underwent Endoscopy with Findings of Radiation Procti tis, Large Intestinal Hemorrhoid, and Multiple Scattered Diverticula. Patient Was Started on Hemorrhoidal Cream. Recommended to Follow up with GI Outpatient. We'll Also Noted to Be Hypoglycemic for Which She Was Changed to D5 Saline and Insulin Adjusted. Patient during Hospitalization Was Noted to Have Acute Kidney Injury Lasix Was Discontinued Especially in the Setting of Preserved EF Function Although Patient Has Underlying Diastolic Dysfunction. Nephrology Visited the Patient's Vancomycin Levels Were Checked and Has Remained Stable. Hemoglobin Has Remained Stable Abdomen Mildly Trended down. Patient Is Recommended to Follow up with Nephrology, Gastroenterology and Also Cardiology Outpatient. Along with Primary Care Physician for Ongoing Workup. CXR: ?Pulmonary emphysema or asthma with large lung volumes Hypoglycemia -Change sliding scale to low dose -Monitor, following D5 Administration Precipitatous drop in HGB/Pancytopenia -Minimal blood in stool from known hemorrhoids, chronic -S/P 2 Unit prbc -hgb Trended down slightly, will monitor -Consult GI in put noted. Radiation proctitis Large internal hemmorrhoids noted on endscopy- could be source of bleeding. Scattered Diverticular as noted -Continue hemorrhoidal cream Cellulitis, ulcers both legs and feet Continue Unasyn Consulted wound care nurse Hypernatremia - Will monitor KRZYSZTOF secondary to vasomotor nephropathy - LASIX HELD - Continue hydration and monitor vanc level. - Nephrology input appreciated B/l LOWER EXT SWELLING-improving -?Secondary to above mentioned cellulitis -EF on echo 55-60% with noted dystolic dysfunction -Doppler lower ext is negative. Hyperkalemia. Now resolved after Kayexalate Discontinued k-dur he was using from home. Severe Protein Calorie Malnutrition Hypocalcemia -Monitor Hypertension Monitor BP Debility: PT/OT- [facility] History of prostate cancer full code status Renal function stable, awaiting Nephrology input for discharge. History Interval history: Patient seen and examine this am, no further bleeding noted. Hgb stable post transfusion. No other complaints. sitting up on chair, tolerating diet Hospitalist Physical - Physical exam Narrative exam: Gen: Not in acute distress, sitting at bedside HEENT: Normocephalic, atraumatic Neck: supple, no JVD Heart: S1 and S2 reg, no murmurs, rubs or gallop Lungs: Clear, no crackles, no wheeze Abd: soft, non tender, non distended, normal BS Ext: Bilateral leg and feet ulcers, dressing in place, swelling, erythema,no clubbing, no cyanosis, Neuro: Awake,alert, oriented x 3, moves all ext, non focal Psych:Normal mood - Constitutional Vitals: Temp Pulse Resp BP Pulse Ox 97.5 F L 73 18 128/67 100 11/01/18 07:30 11/01/18 09:52 11/01/18 07:30 11/01/18 09:52 11/01/18 07:30 General appearance: Present: no acute distress, well-nourished Results - Labs CBC & Chem 7: 11/01/18 06:44 11/01/18 06:44 Labs: Laboratory Last Values WBC 4.3 K/mm3 (4.5-11.0) L 11/01/18 06:44 RBC 2.49 M/mm3 (3.65-5.03) L 11/01/18 06:44 Hgb 8.3 gm/dl (11.8-15.2) L 11/01/18 06:44 Hct 24.3 % (35.5-45.6) L 11/01/18 06:44 MCV 98 fl (84-94) H 11/01/18 06:44 MCH 33 pg (28-32) H 11/01/18 06:44 MCHC 34 % (32-34) 11/01/18 06:44 RDW 15.2 % (13.2-15.2) 11/01/18 06:44 Plt Count 89 K/mm3 (140-440) L 11/01/18 06:44 Lymph % (Auto) 14.0 % (13.4-35.0) 11/01/18 06:44 [place] % (Auto) 9.5 % (0.0-7.3) H 11/01/18 06:44 Eos % (Auto) 3.3 % (0.0-4.3) 11/01/18 06:44 Baso % (Auto) 0.2 % (0.0-1.8) 11/01/18 06:44 Lymph # 0.6 K/mm3 (1.2-5.4) L 11/01/18 06:44 [place] # 0.4 K/mm3 (0.0-0.8) 11/01/18 06:44 Eos # 0.1 K/mm3 (0.0-0.4) 11/01/18 06:44 Baso # 0.0 K/mm3 (0.0-0.1) 11/01/18 06:44 Seg Neutrophils % 73.0 % (40.0-70.0) H 11/01/18 06:44 Seg Neutrophils # 3.2 K/mm3 (1.8-7.7) 11/01/18 06:44 Sodium 141 mmol/L (137-145) 11/01/18 06:44 Potassium 4.2 mmol/L (3.6-5.0) 11/01/18 06:44 Chloride 108.4 mmol/L (98-107) H 11/01/18 06:44 Carbon Dioxide 21 mmol/L (22-30) L 11/01/18 06:44 16 mmol/L 11/01/18 06:44 BUN 17 mg/dL (9-20) 11/01/18 06:44 2.2 mg/dL (0.8-1.5) H 11/01/18 06:44 Estimated GFR 35 ml/min 11/01/18 06:44 8 % 11/01/18 06:44 Glucose 83 mg/dL (75-100) 11/01/18 06:44 POC Glucose 155 (70-105) H 10/31/18 21:13 7.5 % (4-6) H 10/25/18 21:23 Calcium 8.0 mg/dL (8.4-10.2) L 11/01/18 06:44 Iron 144 ug/dL (49-181) 10/30/18 03:40 TIBC 144 mcg/dL (250-450) L 10/30/18 03:40 271.1 ng/mL (13.0-400.0) 10/30/18 03:40 0.30 mg/dL (0.1-1.2) 10/26/18 05:42 AST 41 units/L (5-40) H 10/26/18 05:42 ALT 29 units/L (7-56) 10/26/18 05:42 65 units/L (35-129) 10/26/18 05:42 NT-Pro-B Natriuret Pep 1061 pg/mL (0-900) H 10/25/18 12:37 4.7 g/dL (6.3-8.2) L 10/26/18 05:42 2.7 g/dL (3.9-5) L 10/26/18 05:42 1.4 % 10/26/18 05:42 Vitamin B12 814.9 pg/mL (211-911) 10/30/18 03:40 > 20.0 ng/mL (7.3-26.0) 10/30/18 03:40 Yellow (Yellow) 10/30/18 04:50 Clear (Clear) 10/30/18 04:50 7.0 (5.0-7.0) 10/30/18 04:50 Ur Specific [place] 1.012 (1.003-1.030) 10/30/18 04:50 <15 mg/dl mg/dL (Negative) 10/30/18 04:50 Neg mg/dL (Negative) 10/30/18 04:50 Neg mg/dL (Negative) 10/30/18 04:50 Sm (Negative) 10/30/18 04:50 Neg (Negative) 10/30/18 04:50 Neg (Negative) 10/30/18 04:50 < 2.0 mg/dL (<2.0) 10/30/18 04:50 Ur Leukocyte Esterase Neg (Negative) 10/30/18 04:50 1.0 /HPF (0.0-6.0) 10/30/18 04:50 1.0 /HPF (0.0-6.0) 10/30/18 04:50 U Epithel Cells (Auto) < 1.0 /HPF (0-13.0) 10/30/18 04:50 None seen (None Seen) 10/30/18 04:50 70.7 mg/dL (0.1-20.0) H 10/30/18 04:50 Protein/Creatinin Ratio 0.41 10/30/18 04:50 99 mmol/L 10/30/18 04:50 29 mg/dL (5-11.8) H 10/30/18 04:50 Vancomycin Trough 21.8 ug/mL (5.0-20.0) H 10/28/18 21:36 Random Vancomycin 18.8 ug/mL (0-40.0) 10/31/18 09:53 Hep Bs Antigen Non-reactive (Negative) 10/29/18 10:29 Non-reactive (NonReactive) 10/29/18 10:29 Blood Type B POSITIVE 10/29/18 08:55 Antibody Screen TNR 10/29/18 08:55 JOSE JUAN Antibody Screen Negative 10/29/18 08:55 Crossmatch See Detail 10/29/18 08:55 Active Medications - Current Medications Current Medications: Generic Name Dose Route Start Last Admin Trade Name Freq PRN Reason Stop Dose Admin Acetaminophen 650 mg 10/25/18 21:02 Tylenol PO Q4H PRN Pain MILD(1-3)/Fever >100.5/MCDONALD Amlodipine Besylate 5 mg 10/28/18 10:00 11/01/18 09:52 Norvasc PO 5 mg DAILY EMILY Administration Calcium Carbonate/Glycine 1,000 mg 10/31/18 12:00 11/01/18 11:00 Tums PO 1,000 mg BID EMILY Administration Hydrocortisone Acetate 1 applic 10/30/18 17:44 Proctosol-Hc [place] Q8H PRN Hemorrhoids Ampicillin Sodium/Sulbactam Sodium 3 gm in 100 mls @ 100 mls/hr 10/28/18 18:00 11/01/18 06:24 Unasyn/Ns 3 Gm/100 Ml IV 100 mls/hr Q12HR@0600,1800 EMILY Administration Protocol Sodium Chloride 1,000 mls @ 100 mls/hr 10/30/18 08:00 10/30/18 13:55 Nacl 0.9% 1000 Ml IV 50 mls/hr DIRECT EMILY Administration Insulin Human Lispro 0 unit 10/26/18 07:30 11/01/18 07:00 Humalog SUB-Q Not Given ACHS EMILY Protocol Morphine Sulfate 2 mg 10/25/18 21:02 10/28/18 05:22 Morphine IV 2 mg Q4H PRN Administration Pain, Moderate (4-6) Ondansetron HCl 4 mg 10/25/18 21:02 Zofran IV Q8H PRN Nausea And Vomiting Oxycodone/Acetaminophen 1 tab 10/25/18 21:02 10/29/18 11:10 Percocet 5/325 PO 1 tab Q6H PRN Administration Pain, Moderate (4-6) Pantoprazole Sodium 40 mg 10/29/18 13:00 11/01/18 09:51 Protonix PO 40 mg QDAY EMILY Administration Sodium Chloride 10 ml 10/25/18 22:00 11/01/18 09:52 Sodium Chloride Flush Syringe 10 Ml IV 10 ml BID EMILY Administration Sodium Chloride 10 ml 10/25/18 21:02 11/01/18 06:28 Sodium Chloride Flush Syringe 10 Ml IV 10 ml PRN PRN Administration LINE FLUSH Nutrition/Malnutrition Assess - Dietary Evaluation Nutrition/Malnutrition Findings: Nutrition Notes Start: 10/26/18 10:05 Freq: Status: Active Protocol: Document 10/31/18 14:13 RM (Rec: 10/31/18 14:21 RM [id number]) Nutrition Notes Initial or Follow up Reassessment Current Diagnosis CKD(stage I-IV),Diabetes, Hypertension Other Pertinent Diagnosis leg edema, hx prostate CA, GI bleed Current Diet Renal Labs/Tests A1c 7.5 Pertinent Medications Reviewed Height 5 ft 8 in Weight 58.967 kg [place] Body Weight (kg) 70.00 BMI 19.8 Subjective/Other Information NPO in place earlier today for colonscopy. Renal diet ordered later today. Pt stated that prior to NPO status he ate all of his meals. Pt stated that he is already familiar with DM diet education. Percent of energy/protein needs met: 100%/100% Burn Absent Trauma Absent #1 Nutrition Diagnosis Malnutrition Diagnosis Progress(for reassessment Continues documentation) Is patient on ventilator? No Is Patient Ambulatory and/or Out of Bed Yes REE-([place]-[facility]-ambulatory/OOB) [ [id number] [id number]] Calculation Used for Recommendations [place] Additional Notes Protein needs are 71-88g (1.2- 1.5g/kg) Fluid needs are 1ml/kcal Nutrition Intervention Change Diet Order: Continue current Add Supplement/Snack (indicate name/kcal Glucerna TID butter pecan /protein ) Provides kCal: 660 Provides Protein (gm) 30 Goal #1 Continue to meet at least 75% of kcal and protein needs Anticipated Discharge Needs: Cardiac/consistent CHO and ONS BID to TID Follow-Up By: 11/07/18 Additional Comments Follow for PO and ONS intakes
--- NOTE | 2018-11-01 15:42 | Progress Note ---
Assessment and Plan - Patient Problems (1) Bilateral lower extremity edema Current Visit: Yes Status: Acute Plan to address problem: Bilateral lower extremity edema Also on amlodipine We'll give Bumex 1 mg 1 and assess response (2) HTN (hypertension) Current Visit: Yes Status: Chronic Qualifiers: Hypertension type: essential hypertension Qualified Code(s): I10 - Essential (primary) hypertension Plan to address problem: Hypertension controlled continue medications (3) T2DM (type 2 diabetes mellitus) Current Visit: Yes Status: Chronic Qualifiers: Diabetes mellitus termination clerk insulin use: without termination clerk use Plan to address problem: Diabetes mellitus type 2 with complications Continue medications (4) Acute kidney injury Current Visit: Yes Status: Acute Plan to address problem: Acute kidney injury Possible secondary to toxicity with elevated vancomycin levels Recent intravenous fluids Creatinine currently at 2.2 mg/deal Given edema. We'll give Bumex 1 mg Recheck renal function panel Subjective Principal diagnosis: GI bleed Interval history: 78 year gentleman with medical history significant for sepsis on antibiotics with vancomycin with acute kidney injury in setting of elevated vancomycin levels patients into the complains of edema denies significant shortness of breath denies any fevers chills Objective - Vital Signs Vital signs: Vital Signs - 12hr 11/01/18 11/01/18 11/01/18 07:30 09:52 10:00 Temperature 97.5 F L Pulse Rate 73 73 Pulse Rate [ 72 Apical] Respiratory 18 20 Rate Blood Pressure 128/67 128/67 O2 Sat by Pulse 100 Oximetry - General Appearance General appearance: well-developed, well-nourished EENT: ATNC, PERRL, mucous membranes moist Neck: no JVD Respiratory: Present: Clear to Ascultation Cardiology: S1S2 Gastrointestinal: normal, normoactive bowel sounds Integumentary: no rash Neurologic: alert and oriented x3, CN 3-12 intact Musculoskeletal: deferred Psychiatric: mood/affect appropriate - Lab 11/01/18 06:44 11/01/18 06:44 Most recent lab results Calcium 8.0 mg/dL (8.4-10.2) L 11/01/18 06:44 70.7 mg/dL (0.1-20.0) H 10/30/18 04:50 99 mmol/L 10/30/18 04:50 29 mg/dL (5-11.8) H 10/30/18 04:50 - Imaging Chest x-ray: image reviewed (I reviewed chest x-ray with clear lung buckley) Medications & Allergies - Medications Allergies/Adverse Reactions: Allergies No Known Allergies Allergy (Verified 10/19/18 09:36) Home Medications: Home Medications Medication Instructions Recorded Confirmed Last Taken Type Amlodipine Besylate [Norvasc] 5 mg PO DAILY #7 tablet 10/19/18 10/25/18 Unknown Rx Calcium Carbonate [Tums 500MG CHEW] 1,000 mg PO BID tablet 11/01/18 Unknown Rx Hydrocortisone 2.5% [Proctosol-Hc] 1 applic [place] Q8H PRN #1 tube 11/01/18 Unknown Rx Pantoprazole [Protonix TAB] 40 mg PO QDAY #30 tablet 11/01/18 Unknown Rx Active Medications: Generic Name Dose Route Start Last Admin Trade Name Freq PRN Reason Stop Dose Admin Acetaminophen 650 mg 10/25/18 21:02 Tylenol PO Q4H PRN Pain MILD(1-3)/Fever >100.5/MCDONALD Amlodipine Besylate 5 mg 10/28/18 10:00 11/01/18 09:52 Norvasc PO 5 mg DAILY EMILY Administration Calcium Carbonate/Glycine 1,000 mg 10/31/18 12:00 11/01/18 11:00 Tums PO 1,000 mg BID EMILY Administration Hydrocortisone Acetate 1 applic 10/30/18 17:44 Proctosol-Hc [place] Q8H PRN Hemorrhoids Ampicillin Sodium/Sulbactam Sodium 3 gm in 100 mls @ 100 mls/hr 10/28/18 18:00 11/01/18 06:24 Unasyn/Ns 3 Gm/100 Ml IV 100 mls/hr Q12HR@0600,1800 EMILY Administration Protocol Sodium Chloride 1,000 mls @ 100 mls/hr 10/30/18 08:00 10/30/18 13:55 Nacl 0.9% 1000 Ml IV 50 mls/hr DIRECT EMILY Administration Insulin Human Lispro 0 unit 10/26/18 07:30 11/01/18 12:30 Humalog SUB-Q 4 unit ACHS EMILY Administration Protocol Morphine Sulfate 2 mg 10/25/18 21:02 10/28/18 05:22 Morphine IV 2 mg Q4H PRN Administration Pain, Moderate (4-6) Ondansetron HCl 4 mg 10/25/18 21:02 Zofran IV Q8H PRN Nausea And Vomiting Oxycodone/Acetaminophen 1 tab 10/25/18 21:02 10/29/18 11:10 Percocet 5/325 PO 1 tab Q6H PRN Administration Pain, Moderate (4-6) Pantoprazole Sodium 40 mg 10/29/18 13:00 11/01/18 09:51 Protonix PO 40 mg QDAY EMILY Administration Sodium Chloride 10 ml 10/25/18 22:00 11/01/18 09:52 Sodium Chloride Flush Syringe 10 Ml IV 10 ml BID EMILY Administration Sodium Chloride 10 ml 10/25/18 21:02 11/01/18 06:28 Sodium Chloride Flush Syringe 10 Ml IV 10 ml PRN PRN Administration LINE FLUSH
[2018-11-01] MEDS: BUMEX IV ONE ×2 (16:58)
[2018-11-01] MEDS: NACL 0.9% 1000 ML 1,000 ML IV SCH (17:50)
[2018-11-01 23:53] LABS: Albumin 2.6 g/dL (3.8-4.8); Gamma Globulin 0.7 g/dL (0.8-1.7)
[2018-11-02] MEDS: UNASYN/NS 3 GM/100 ML 3 GM/100 ML BAG IV SCH (06:01)
[2018-11-02 06:11] LABS: Basophils % (Auto) 0.2 % (0.0-1.8); Eosinophils # (Auto) 0.1 K/mm3 (0.0-0.4); Eosinophils % (Auto) 2.2 % (0.0-4.3); Hematocrit 25.1 % (35.5-45.6); Hemoglobin 8.4 gm/dl (11.8-15.2); Lymphocytes # (Auto) 0.3 K/mm3 (1.2-5.4); Lymphocytes % (Auto) 9.3 % (13.4-35.0); Mean Corpuscular HGB Conc 33 % (32-34); Mean Corpuscular Volume 99 fl (84-94); Monocytes # (Auto) 0.4 K/mm3 (0.0-0.8); Monocytes % (Auto) 9.7 % (0.0-7.3); Red Blood Count 2.53 M/mm3 (3.65-5.03)
[2018-11-02 06:34] LABS: Platelet Count 85 K/mm3 (140-440)
[2018-11-02] MEDS: HumaLOG SUB-Q SCH ×2 (08:30→11:29)
[2018-11-02 08:42] VITALS: BP 133/65
[2018-11-02] MEDS: TUMS PO SCH (10:55)
[2018-11-02] MEDS: PROTONIX PO SCH (10:55)
[2018-11-02] MEDS: NORVASC PO SCH (10:55)
[2018-11-02] MEDS: SODIUM CHLORIDE FLUSH SYRINGE 10 ML IV SCH (10:55)
== END 2018-11-02 13:40 | disposition home or self-care (01) | DRG 602 ==
LOC: ED 10:50 → 2B-ACE 14:17
PROVIDERS: ADMIT Internal Medicine; ATTEND Internal Medicine
PROC: 30233N1 Transfusion of Nonautologous Red Blood Cells into Peripheral Vein, Percutaneous Approach (ICD-10-PCS; principal; 2018-10-29)
PROC: 0DJD8ZZ Inspection of Lower Intestinal Tract, Via Natural or Artificial Opening Endoscopic (ICD-10-PCS; 2018-10-30)
DX: L03.116 Cellulitis of left lower limb (principal); N17.0 Acute kidney failure with tubular necrosis; E43 Unspecified severe protein-calorie malnutrition; E87.0 Hyperosmolality and hypernatremia; D61.818 Other pancytopenia; Z68.1 Body mass index [BMI] 19.9 or less, adult; L03.115 Cellulitis of right lower limb; F10.10 Alcohol abuse, uncomplicated; Y90.9 Presence of alcohol in blood, level not specified; E11.621 Type 2 diabetes mellitus with foot ulcer; L97.529 Non-pressure chronic ulcer of other part of left foot with unspecified severity; L97.519 Non-pressure chronic ulcer of other part of right foot with unspecified severity; C61 Malignant neoplasm of prostate; G89.29 Other chronic pain; F17.210 Nicotine dependence, cigarettes, uncomplicated; T36.8X5A Adverse effect of other systemic antibiotics, initial encounter; E83.51 Hypocalcemia; K62.7 Radiation proctitis; E11.22 Type 2 diabetes mellitus with diabetic chronic kidney disease; N18.9 Chronic kidney disease, unspecified; K57.30 Diverticulosis of large intestine without perforation or abscess without bleeding; E87.5 Hyperkalemia; K64.9 Unspecified hemorrhoids; Z82.49 Family history of ischemic heart disease and other diseases of the circulatory system; Y92.89 Other specified places as the place of occurrence of the external cause
CPT/HCPCS: 36415; 71045; 76770; 76857; 80048; 80053; 80202; 81001; 82570; 82607; 82728; 82747; 82962; 83036; 83550; 83880; 84132; 84156; 84165; 84295; 84300; 85014; 85018; 85025; 85027; 86706; 86803; 86850; 86900; 86901; 86920; 87040; 87116; 89050; 93306; 93970; 96374; G0378; J0295; J1650; J1815; J1940; J2270; J2704; J3370; J7030; J7040; J7050; P9016